=== PATIENT | female | born 1990 | race Caucasian/White ===

== ENCOUNTER 2017-12-22 21:22 | Emergency (ER) | payer OTHER ==
--- NOTE | 2017-12-22 21:34 | PDOC ---
Rapid Medical Evaluation Chief Complaint: Pain, Acute Time Seen by Provider: 12/22/17 21:28 Medical Evaluation: Allergies Allergy/AdvReac Type Severity Reaction Status Date / Time No Known Allergies Allergy Verified 09/20/15 18:50 12/22/17 21:32 27 year old female with left side neck and shoulder pain x3 days s/p skin biopsy to left shoulder on 12/12/2017. surgical site clean dry and intact. pain worse with movement. patient reports that she took naprosen at 3.45 with no relief in pain, denies chest pain, dizziness, nausea and vomiting PE: patient alert ox3. pain to left shoulder with movement. A: shoulder pain P: Ua urine patient to the ER for further management Discharge Disposition - Diagnosis Shoulder pain, left Qualifiers: Chronicity: acute Qualified Code(s): M25.512 - Pain in left shoulder - Referrals - Patient Instructions - Post Discharge Activity
[2017-12-22 21:39] VITALS: BP 157/82; PULSE 64; TEMP 97.7; BMI 26.6
[2017-12-22 22:07] LABS: HCG,QUALITATIVE URINE NEGATIVE
[2017-12-22] MEDS ORDERED: KETOROLAC TROMETHAMINE 60 MG/2 ML VIAL IM ONE (22:21)
[2017-12-22] MEDS ORDERED: KETOROLAC TROMETHAMINE 60 MG/2 ML VIAL ONE (22:22)
--- NOTE | 2017-12-22 22:29 | PDOC ---
History of Present Illness - General Chief Complaint: Pain, Acute Stated Complaint: NECK PAIN Time Seen by Provider: 12/22/17 21:28 - History of Present Illness Initial Comments: 7-year-old female without comorbidities presents for evaluation of left shoulder pain. She is 10 days status post left shoulder arthroscopy. Her pain increased over the last 4 days without any precipitating traumatic event. 12/22/17 22:23 Past History - Past Medical History Allergies/Adverse Reactions: Allergies Allergy/AdvReac Type Severity Reaction Status Date / Time No Known Allergies Allergy Verified 09/20/15 18:50 Home Medications: Ambulatory Orders NK [No Known Home Medication] 12/22/17 Anemia: No Asthma: No Cancer: No Cardiac Disorders: No CVA: No COPD: No CHF: No DVT: No Dementia: No Diabetes: No Dialysis: No GI Disorders: No Disorders: No HTN: No Hypercholesterolemia: No Kidney Stones: No Liver Disease: No Psychiatric Problems: No Seizures: No Thyroid Disease: No - Reproductive History (#): 3 Para: 0 Therapeutic (s) & number: Yes (2) Spontaneous : 2 - Immunization History Immunization Up to Date: Yes - Suicide/Smoking/Psychosocial Hx Smoking Status: Yes Smoking History: Never smoked Number of Cigarettes Smoked Daily: 0 Information on smoking cessation initiated: No Hx Alcohol Use: No Drug/Substance Use Hx: No Substance Use Type: None Review of Systems - Review of Systems Musculoskeletal: Yes: Joint Pain All Other Systems: Reviewed and Negative *Physical Exam - Vital Signs Last Vital Signs Temp Pulse Resp BP Pulse Ox 97.7 F 64 20 157/82 100 12/22/17 21:32 12/22/17 21:32 12/22/17 21:32 12/22/17 21:32 12/22/17 21:32 - Physical Exam Comments: Left shoulder arthroscopic portals are healing. Skin color and temperature are normal. There is no swelling no appreciable intra-articular effusion. Mild discomfort with passive motion. Upper extremity compartments are tender. She has no gross sensorimotor deficits. 12/22/17 22:24 12/22/17 22:25 ED Treatment Course - ADDITIONAL ORDERS Additional order review: Laboratory Results 12/22/17 21:37 Urine HCG, Qual Negative Medical Decision Making - Medical Decision Making This sounds like increased postoperative pain I do not suspect a septic joint. we'll get an ultrasound 12/22/17 22:24 07/30/18 22:25 *DC/Admit/Observation/Transfer Diagnosis at time of Disposition: Shoulder pain, left Qualifiers: Chronicity: acute Qualified Code(s): M25.512 - Pain in left shoulder - Referrals Referrals: Sy Neri MD [Primary Care Provider] - - Patient Instructions - Post Discharge Activity
[2017-12-22 22:30] LABS: URINE APPEARANCE SLCLOUDY; URINE BILIRUBIN NEGATIVE (<2.0 mg/dL); URINE COLOR LTYELLOW; URINE GLUCOSE (UA) NEGATIVE (NEGATIVE); URINE KETONE NEGATIVE (NEGATIVE); URINE LEUK ESTERASE TRACE (NEGATIVE); URINE NITRITE NEGATIVE (NEGATIVE); URINE PROTEIN NEGATIVE (NEGATIVE); URINE UROBILINOGEN NEGATIVE mg/dL (0.2-1.0)
[2017-12-22 22:39] LABS: EPI CELLS FEW /HPF (FEW); URINE BACTERIA RARE /hpf (NONE SEEN); URINE MUCUS RARE
--- NOTE | 2017-12-22 23:53 | PDOC ---
*Physical Exam - Vital Signs Last Vital Signs Temp Pulse Resp BP Pulse Ox 97.7 F 64 20 157/82 100 12/22/17 21:32 12/22/17 21:32 12/22/17 21:32 12/22/17 21:32 12/22/17 21:32 ED Treatment Course - ADDITIONAL ORDERS Additional order review: Laboratory Results 12/22/17 21:37 Urine Color Ltyellow Urine Appearance Slcloudy Urine pH 5.0 D Ur Specific [place] 1.018 Urine Protein Negative Urine Glucose (UA) Negative Urine Ketones Negative Urine Blood 1+ H Urine Nitrite Negative Urine Bilirubin Negative Urine Urobilinogen Negative Ur Leukocyte Esterase Trace Urine WBC (Auto) 4 Urine RBC (Auto) 4 Ur Epithelial Cells Few Urine Bacteria Rare Urine Mucus Rare Urine HCG, Qual Negative - Medications Given in the ED: ED Medications Discontinued Medications Generic Name Dose Route Start Last Admin Trade Name Freq PRN Reason Stop Dose Admin Ketorolac Tromethamine 60 mg 12/22/17 22:21 12/22/17 22:25 Toradol Injection - IM 12/22/17 22:22 60 mg ONCE ONE Administration Medical Decision Making - Medical Decision Making 12/22/17 23:48 US negative for DVT. will d/c home patient to follow up with orthopedics *DC/Admit/Observation/Transfer Diagnosis at time of Disposition: Shoulder pain, left Qualifiers: Chronicity: acute Qualified Code(s): M25.512 - Pain in left shoulder - Discharge Dispostion Disposition: HOME - Prescriptions Prescriptions: Oxycodone HCl/Acetaminophen [Percocet 5-325 mg Tablet] 1 tab PO Q4H PRN #10 tablet MDD 4 PRN Reason: Pain Level 6-10 - Referrals Referrals: Sy Neri MD [Primary Care Provider] - - Patient Instructions Printed Discharge Instructions: DI for Shoulder Pain Additional Instructions: take percocet every 4-6 hours as needed for pain. follow up with your surgeon as soon as possible. return to the ER if symptoms worsen - Post Discharge Activity Forms/Work/School Notes: Back to Work
== END 2017-12-23 00:43 | disposition home or self-care (01) ==
LOC: JERFT 21:22 → JER 21:22
PROC: 3E0233Z Introduction of Anti-inflammatory into Muscle, Percutaneous Approach (ICD-10-PCS; principal; 2017-12-22)
DX: M25.512 Pain in left shoulder (principal)
CPT/HCPCS: 81003; 81015; 84703; 93971; 96372; 99281-25

== ENCOUNTER 2018-07-01 19:35 | Inpatient (IN) | payer OTHER ==
--- NOTE | 2018-07-01 20:34 | PDOC ---
Rapid Medical Evaluation Chief Complaint: Pain Time Seen by Provider: 07/01/18 20:33 Medical Evaluation: Allergies Allergy/AdvReac Type Severity Reaction Status Date / Time No Known Allergies Allergy Verified 09/20/15 18:50 07/01/18 20:34 I have performed a brief in-person evaluation of this patient. The patient presents with a chief complaint of: Body aches w/ neck pain, ANGEL and fever since yesterday. Denies pmhx, recent travel or sick contacts. No AMS, photophobia or rash Pertinent physical exam findings:chino very uncomfortable and tachy to 106 w/ T of 99F I have ordered the following:motrin, flu The patient will proceed to the ED for further evaluation. Discharge Disposition - Diagnosis Viral syndrome - Referrals Referrals: Raza Burns MD [Primary Care Provider] - - Patient Instructions - Post Discharge Activity
[2018-07-01] MEDS ORDERED: IBUPROFEN 400 MG TABLET (FP) PO ONE ×3 (20:38→23:23)
--- NOTE | 2018-07-01 20:50 | PDOC ---
History of Present Illness - General Chief Complaint: Pain Stated Complaint: PAIN Time Seen by Provider: 07/01/18 20:33 - History of Present Illness Initial Comments: 07/01/18 21:16 27-year-old female presents for evaluation of headache neck pain and abdominal pain with fever times one day. She just finished a course of amoxicillin for strep throat infection while on that coarse she took Diflucan for a yeast infection, she also takes omeprazole for GERD Past History - Past Medical History Allergies/Adverse Reactions: Allergies Allergy/AdvReac Type Severity Reaction Status Date / Time No Known Allergies Allergy Verified 07/01/18 20:38 Home Medications: Ambulatory Orders NK [No Known Home Medication] 07/01/18 Anemia: No Asthma: No Cancer: No Cardiac Disorders: No CVA: No COPD: No CHF: No DVT: No Dementia: No Diabetes: No Dialysis: No GI Disorders: No Disorders: No HTN: No Hypercholesterolemia: No Kidney Stones: No Liver Disease: No Psychiatric Problems: No Seizures: No Thyroid Disease: No - Reproductive History (#): 3 Para: 0 Therapeutic (s) & number: Yes (2) Spontaneous : 2 - Immunization History Immunization Up to Date: Yes - Suicide/Smoking/Psychosocial Hx Smoking Status: Yes Smoking History: Never smoked Have you smoked in the past 12 months: No Number of Cigarettes Smoked Daily: 0 Information on smoking cessation initiated: No Hx Alcohol Use: No Drug/Substance Use Hx: No Substance Use Type: None Review of Systems - Review of Systems Constitutional: Yes: Fever ABD/GI: Yes: See HPI Musculoskeletal: Yes: Neck Pain Neurological: Yes: Headache *Physical Exam - Vital Signs Last Vital Signs Temp Pulse Resp BP Pulse Ox 99.2 F 106 H 18 151/91 100 07/01/18 20:33 07/01/18 20:33 07/01/18 20:33 07/01/18 20:33 07/01/18 20:33 - Physical Exam Comments: 07/01/18 21:17 HEAD: NC/AT EYES: Conjuntiva clear Ears: Canals and TM's normal NOSE: No d/c THROAT: Moist mucous membrances, oral pharanx clear, uvula midline NECK: + Meningismus CARDIAC: S1 S2 LUNGS: CTA Full and Equal breath sounds ABDOMEN: Soft right upper quadrant tenderness MS: Full ROM in all joints without edema NEUROLOGIC: No gross sensory or motor deficits, NVID SKIN: Normal color and temperature no lesions or rashes 07/01/18 21:31 Moderate Sedation - Procedure Monitoring Vital Signs: Procedure Monitoring Vital Signs Temperature 99.2 F 07/01/18 20:33 Pulse Rate 106 H 07/01/18 20:33 Respiratory Rate 18 07/01/18 20:33 Blood Pressure 151/91 07/01/18 20:33 O2 Sat by Pulse Oximetry (%) 100 07/01/18 20:33 ED Treatment Course - Medications Given in the ED: ED Medications Discontinued Medications Generic Name Dose Route Start Last Admin Trade Name Freq PRN Reason Stop Dose Admin Ibuprofen 800 mg 07/01/18 20:38 07/01/18 20:46 Motrin - PO 07/01/18 20:39 800 mg ONCE ONE Administration Medical Decision Making - Medical Decision Making 07/01/18 20:50 EKG done in triage, order placed as a courtesy 07/01/18 21:32 pt signed out to main ER *DC/Admit/Observation/Transfer Diagnosis at time of Disposition: Abdominal pain, Headache, Neck pain Diagnosis at time of Disposition: (Ruled Out): Viral syndrome - Referrals Referrals: Raza Burns MD [Staff Physician] - - Patient Instructions - Post Discharge Activity
[2018-07-01] MEDS ORDERED: ACETAMINOPHEN 1000 MG/100 ML VIAL (NON FORMULARY) IVPB ONE (21:15)
[2018-07-01 21:36] LABS: BASO % 0.5 % (0-2.0); EOS % 0.3 % (0-4.5); HEMATOCRIT 38.7 % (32.4-45.2); HEMOGLOBIN 13.6 GM/dL (10.7-15.3); LYMPH % 16.8 % (8-40); MCHC 35.1 g/dl (32.0-36.0); MEAN CELL VOLUME 82.5 fl (80-96); MEAN PLT VOLUME 8.9 fl (7.5-11.1); MONO % 10.3 % (3.8-10.2); NEUT % 72.1 % (42.8-82.8); PLATELET COUNT 241 K/MM3 (134-434); RBC 4.69 M/mm3 (3.60-5.2); RDW 13.5 % (11.6-15.6); WHITE BLOOD COUNT 9.8 K/mm3 (4.0-10.0)
--- NOTE | 2018-07-01 21:36 | PDOC ---
History of Present Illness - General Chief Complaint: Pain Stated Complaint: PAIN Time Seen by Provider: 07/01/18 20:33 History Source: Patient Exam Limitations: No Limitations - History of Present Illness Initial Comments: 07/01/18 21:35 The patient is a 27F with a PMH of GERD who presents to the ER with complaints of abdominal pain and headache. The patient states she's had 2 days of abdominal pain, in her epigastrium and suprapubic abdomen. The pain is sharp and intermittent, nonradiating, associated with nausea, vomiting, and chills. She denies dysuria and discharge. She denies any abdominal surgery. She also complains of a headache which is progressive but worsening, located on the L side of her head, associated with photophobia and neck stiffness. She denies sick contacts. She denies fever, chills, CP, SOB. Past History - Past Medical History Allergies/Adverse Reactions: Allergies Allergy/AdvReac Type Severity Reaction Status Date / Time No Known Allergies Allergy Verified 07/01/18 20:38 Home Medications: Ambulatory Orders NK [No Known Home Medication] 07/01/18 Anemia: No Asthma: No Cancer: No Cardiac Disorders: No CVA: No COPD: No CHF: No DVT: No Dementia: No Diabetes: No Dialysis: No GI Disorders: No Disorders: No HTN: No Hypercholesterolemia: No Kidney Stones: No Liver Disease: No Psychiatric Problems: No Seizures: No Thyroid Disease: No - Reproductive History (#): 3 Para: 0 Therapeutic (s) & number: Yes (2) Spontaneous : 2 - Immunization History Immunization Up to Date: Yes - Suicide/Smoking/Psychosocial Hx Smoking Status: Yes Smoking History: Never smoked Have you smoked in the past 12 months: No Number of Cigarettes Smoked Daily: 0 Information on smoking cessation initiated: No Hx Alcohol Use: No Drug/Substance Use Hx: No Substance Use Type: None Review of Systems - Review of Systems Able to Perform ROS?: Yes Comments:: 07/02/18 03:26 GENERAL/CONSTITUTIONAL: No fever or chills. No weakness. HEAD, EYES, EARS, NOSE AND THROAT: No change in vision. No ear pain or discharge. No sore throat. CARDIOVASCULAR: No chest pain, palpitations, or lightheadedness. RESPIRATORY: No cough, wheezing, shortness of breath, or hemoptysis. GASTROINTESTINAL: Positive for nausea, vomiting, and abdominal pain. GENITOURINARY: No dysuria, frequency, hematuria, or change in urination. MUSCULOSKELETAL: No joint or muscle swelling or pain. No neck or back pain. SKIN: No rash or lesions. NEUROLOGIC: Positive for headache. No numbness, tingling, focal weakness, loss of consciousness, or change in strength/sensation. Is the patient limited Indonesian proficient: No Constitutional: No: Chills, Fever *Physical Exam - Vital Signs Last Vital Signs Temp Pulse Resp BP Pulse Ox 99.2 F 106 H 18 151/91 100 07/01/18 20:33 07/01/18 20:33 07/01/18 20:33 07/01/18 20:33 07/01/18 20:33 - Physical Exam Comments: 07/02/18 03:27 GENERAL: Well developed, well nourished. Awake and alert. No acute distress. HEENT: Normocephalic, atraumatic. Hearing grossly normal. Moist mucous membranes. PERRLA, EOMI. No conjunctival pallor. Sclera are non-icteric. NECK: Supple. Full ROM. No JVD. CARDIOVASCULAR: Regular rate and rhythm. No murmurs, rubs, or gallops. PULMONARY: No evidence of respiratory distress. Lungs clear to auscultation bilaterally. No wheezing, rales or rhonchi. ABDOMINAL: Soft. TTP with guarding over epigastrium. TTP without rebound or guarding in suprapubic abdomen. Non-distended. GENITOURINARY: No CVA tenderness bilaterally. MUSCULOSKELETAL: Normal range of motion at all joints. No bony deformities or tenderness. EXTREMITIES: No cyanosis. No clubbing. No edema. No calf tenderness or swelling. SKIN: Warm and dry. Normal capillary refill. No rashes. No jaundice. NEUROLOGICAL: Alert, awake, appropriate. Cranial nerves 2-12 grossly intact. Normal speech. Gait is normal without ataxia. PSYCHIATRIC: Cooperative. Good eye contact. Appropriate mood and affect. Moderate Sedation - Procedure Monitoring Vital Signs: Procedure Monitoring Vital Signs Temperature 99.2 F 07/01/18 20:33 Pulse Rate 106 H 07/01/18 20:33 Respiratory Rate 18 07/01/18 20:33 Blood Pressure 151/91 07/01/18 20:33 O2 Sat by Pulse Oximetry (%) 100 07/01/18 20:33 Procedures - Lumbar Puncture Indication: Meningitis CT Scan: Yes Betadine Prep: No Position: Left lateral decubitus Site: L4-L51 Local Anesthesia: 1% Lidocaine with epi Volume(ml): 2 Lumbar Puncture Kit: Adult Traumatic Tap: Yes Tubes Obtained: 4 Clear Fluid: Yes Complications: Headache (same as prior to LP) ED Treatment Course - LABORATORY CBC & Chemistry Diagram: 07/01/18 21:15 07/01/18 21:15 - Medications Given in the ED: ED Medications Discontinued Medications Generic Name Dose Route Start Last Admin Trade Name Troyq PRN Reason Stop Dose Admin Ibuprofen 800 mg 07/01/18 20:38 07/01/18 20:46 Motrin - PO 07/01/18 20:39 800 mg ONCE ONE Administration Medical Decision Making - Medical Decision Making 07/02/18 01:08 The patient is a 27F with no PMH who presents to the ER with abdominal pain concerning for cholecystitis, pancreatitis, UTI, and appendicitis. Headache with neck stiffness concerning for meningitis. CT head negative. CTAP concerning for early appendicitis. Case d/w Dr. Lamar who will see the patient in the morning. 07/02/18 02:31 LP done in sterile fashion without complications. Tubes sent to lab for evaluation. 07/02/18 04:22 CSF negative for WBC. RBC's decreased from 5000 to 175, ruling out SAH. Dr. Al paged for admission. 07/02/18 04:57 Dr. Al paged x 2. 07/02/18 05:12 Hospitalist microblogged for admission. 07/02/18 05:[address] Shahid for admission. *DC/Admit/Observation/Transfer Diagnosis at time of Disposition: Neck pain Abdominal pain Qualifiers: Abdominal location: right lower quadrant Qualified Code(s): R10.31 - Right lower quadrant pain Headache Qualifiers: Headache type: unspecified Headache chronicity pattern: unspecified pattern Intractability: intractable Qualified Code(s): R51 - Headache - Discharge Dispostion Condition at time of disposition: Guarded Decision to Admit order: Yes - Referrals Referrals: Raza Burns MD [Staff Physician] - - Patient Instructions - Post Discharge Activity
[2018-07-01] MEDS ORDERED: ACETAMINOPHEN INJECTION 100 ML IVPB ONE (21:37)
[2018-07-01 21:43] LABS: URINE APPEARANCE CLEAR; URINE BILIRUBIN NEGATIVE (<2.0 mg/dL); URINE COLOR LTYELLOW; URINE GLUCOSE (UA) NEGATIVE (NEGATIVE); URINE KETONE TRACE (NEGATIVE); URINE LEUK ESTERASE NEGATIVE (NEGATIVE); URINE NITRITE NEGATIVE (NEGATIVE); URINE PROTEIN NEGATIVE (NEGATIVE); URINE UROBILINOGEN NEGATIVE mg/dL (0.2-1.0)
[2018-07-01 21:51] LABS: EPI CELLS RARE /HPF (FEW); URINE BACTERIA RARE /hpf (NONE SEEN)
[2018-07-01 22:04] LABS: ALBUMIN 3.9 g/dl (3.4-5.0); ALK PHOS 47 U/L (45-117); ANION GAP 5 MMOL/L (8-16); BILIRUBIN,TOTAL 0.6 mg/dL (0.2-1); BLOOD UREA NITROGEN 9 mg/dL (7-18); CALCIUM 8.9 mg/dL (8.5-10.1); CHLORIDE 104 mmol/L (98-107); CO2 28 mmol/L (21-32); CREATININE 0.7 mg/dL (0.55-1.3); GLUCOSE,RANDOM 82 mg/dL (74-106); LIPASE 186 U/L (73-393); POTASSIUM 3.8 mmol/L (3.5-5.1); SGOT/AST 14 U/L (15-37); SGPT/ALT 24 U/L (13-61); SODIUM 137 mmol/L (136-145); TOT PROT 7.3 g/dl (6.4-8.2)
[2018-07-01] MEDS ORDERED: SODIUM CHLORIDE 0.9% 1000 ML INFUS.BAG IV ONE (22:06)
--- NOTE | 2018-07-01 22:10 | PDOC ---
Attending Attestation - HPI HPI: 07/01/18 22:41 The patient is a 27 year old female, with a significant past medical history of GERD, who presents to the emergency department with, abdominal pain, headache, and neck pain. Patient notes her abdominal pain onset at 12am this morning and the headache/neck pain onset at 6am. She endorses decreased ROM of her neck secondary to pain, prompting her arrival to the ED. She denies recent chest pain or shortness of breath. Allergies: NKDA Primary Care Physician: Dr. Sy Neri - Physicial Exam PE: 07/01/18 22:58 Agree with resident exam. <Chelsey Dorantes - Last Filed: 07/01/18 22:58> - Resident Resident Name: Wing Lazo - ED Attending Attestation I have performed the following: I have examined & evaluated the patient, The case was reviewed & discussed with the resident, I agree w/resident's findings & plan - Medical Decision Making 07/02/18 05:08 27-year-old female with headache neck stiffness and abdominal pain CT scan of the abdomen showed possible early appendicitis Lumbar puncture was not suggestive of meningitis Unasyn 3 g IV piggyback given and patient admitted for further evaluation, surgery consult did by the emergency department resident <Kiley King - Last Filed: 07/02/18 05:09> Attestations - Attestations 07/01/18 22:42 Documentation prepared by Chelsey Dorantes, acting as medical doctor nuclear medicine for Kiley King DO. <Chelsey Dorantes - Last Filed: 07/01/18 22:58>
[2018-07-01] MEDS ORDERED: QUEtiapine FUMARATE 25 MG TABLET (FP) ONE (23:09)
[2018-07-01] MEDS ORDERED: METOCLOPRAMIDE HCL INJECTION 10 MG/2 ML VIAL IVPB ONE (23:17)
[2018-07-01] MEDS ORDERED: METOCLOPRAMIDE HCL INJECTION 10 MG/2 ML VIAL ONE (23:25)
[2018-07-02] MEDS ORDERED: LIDOCAINE HCL 1%, 10 MG/ML (20ML VIAL) ONE ×2 (02:15→09:06)
[2018-07-02] MEDS ORDERED: LIDOCAINE HCL 1%, 10 MG/ML (50 mL VIAL) SQ ONE (02:15)
[2018-07-02 03:53] LABS: BF GLUCOSE (CSF ONLY) 57 mg/dL (40-70)
[2018-07-02 04:08] LABS: CSF APPEARANCE CLEAR; CSF WBC 3
[2018-07-02 04:10] LABS: CSF APPEARANCE CLEAR; CSF COLOR COLORLESS; CSF WBC 0; OTHER CELLS 0
[2018-07-02 04:11] LABS: CSF COLOR PINK
[2018-07-02] MEDS ORDERED: AMPICILLIN NA/SULBACTAM NA 1.5 GM in SODIUM CHLORIDE 100 ML IVPB ONE (05:04)
[2018-07-02] MEDS ORDERED: LACTATED RINGERS SOLUTION 1,000 ML/1,000 ML INFUS.BAG IV SCH (06:00)
--- NOTE | 2018-07-02 06:13 | HP ---
<Maeve Shahid - Last Filed: 07/02/18 06:15> CHIEF COMPLAINT: abdominal pain/ headache PCP: HISTORY OF PRESENT ILLNESS: 27 y/o female with no PMH presents with a headache and abdominal pain. Patient states that the abdominal pain started yesterday afternoon and it was associated with a fever at home and an episode of vomiting, no diarrhea. She states that this has never happened before- she denies any recent travel or any dietary changes. She describes the pain as around an 8/10, throughout her whole abdomen. In addition, patient was also having a headache that was associated with neck pain and photophobia. She has had a headache like this in the past around 6 months ago but never saw a neurologist, and usually will take ibuprofen for the pain. ER course was notable for: (1) head CT negative; LP done- results negative for meningitis thus far (2)ab/pelvis CT showing early signs of appendicitis- dr. gleason consulted and aware (3)given unasyn; toradol/ibuprofen Recent Travel: denies PAST MEDICAL HISTORY: denies PAST SURGICAL HISTORY: 1 c section; shoulder surgery Social History: Smoking:denies Alcohol:denies Drugs: denies Family History: HTN on both sides of her family Allergies No Known Allergies Allergy (Verified 07/01/18 20:38) HOME MEDICATIONS: Home Medications Medication Instructions Recorded NK [No Known Home Medication] 07/01/18 REVIEW OF SYSTEMS CONSTITUTIONAL: Absent: fever, chills, diaphoresis, generalized weakness, malaise, loss of appetite, weight change HEENT: Absent: rhinorrhea, nasal congestion, throat pain, throat swelling, difficulty swallowing, mouth swelling, ear pain, eye pain, visual changes CARDIOVASCULAR: Absent: chest pain, syncope, palpitations, irregular heart rate, lightheadedness , peripheral edema RESPIRATORY: Absent: cough, shortness of breath, dyspnea with exertion, orthopnea, wheezing, stridor, hemoptysis GASTROINTESTINAL: Present: abdominal pain, vomiting Absent: , abdominal distension, nausea, , diarrhea, constipation, melena, hematochezia GENITOURINARY: Absent: dysuria, frequency, urgency, hesitancy, hematuria, flank pain, genital pain MUSCULOSKELETAL: Absent: myalgia, arthralgia, joint swelling, back pain, neck pain SKIN: Absent: rash, itching, pallor HEMATOLOGIC/IMMUNOLOGIC: Absent: easy bleeding, easy bruising, lymphadenopathy, frequent infections ENDOCRINE: Absent: unexplained weight gain, unexplained weight loss, heat intolerance, cold intolerance NEUROLOGIC: Present: headache Absent: focal weakness or paresthesias, dizziness, unsteady gait, seizure, mental status changes, bladder or bowel incontinence PSYCHIATRIC: Absent: anxiety, depression, suicidal or homicidal ideation, hallucinations. PHYSICAL EXAMINATION Vital Signs - 24 hr 07/01/18 20:33 Temperature 99.2 F Pulse Rate 106 H Respiratory 18 Rate Blood Pressure 151/91 O2 Sat by Pulse 100 Oximetry (%) GENERAL: Awake, alert, and fully oriented, in no acute distress.. EYES: Pupils equal, round and reactive to light, sensitive to light. NECK: NO JVD, no lymphadneopathy. LUNGS: CTA B/L; no rales, rhonchi or wheezing. HEART: Regular rate and rhythm, normal S1 and S2 without murmur, rub or gallop. ABDOMEN: Soft, RLQ tenderness upon palpation; + rovsings sign MUSCULOSKELETAL: Normal range of motion at all joints. No bony deformities or tenderness. No CVA tenderness. EXTREMITIES: warm; well-perfused no clubbing/cyanosis or edema NEUROLOGICAL: Cranial nerves II-XII intact. Normal speech. Normal gait. PSYCHIATRIC: Cooperative. Good eye contact. Appropriate mood and affect. SKIN: Warm, dry, normal turgor, no rashes or lesions noted, normal capillary refill. Laboratory Results - last 24 hr 07/01/18 07/01/18 07/01/18 20:42 21:15 21:15 WBC 9.8 RBC 4.69 Hgb 13.6 Hct 38.7 MCV 82.5 MCH 29.0 MCHC 35.1 RDW 13.5 Plt Count 241 D MPV 8.9 Absolute Neuts (auto) 7.0 Neutrophils % 72.1 Lymphocytes % 16.8 Monocytes % 10.3 H Eosinophils % 0.3 Basophils % 0.5 Nucleated RBC % 0 Sodium 137 Potassium 3.8 Chloride 104 Carbon Dioxide 28 Anion Gap 5 L BUN 9 Creatinine 0.7 Creat Clearance w eGFR > 60 Random Glucose 82 Calcium 8.9 Total Bilirubin 0.6 AST 14 L ALT 24 Alkaline Phosphatase 47 Total Protein 7.3 Albumin 3.9 Lipase 186 Urine Color Urine Appearance Urine pH Ur Specific [place] Urine Protein Urine Glucose (UA) Urine Ketones Urine Blood Urine Nitrite Urine Bilirubin Urine Urobilinogen Ur Leukocyte Esterase Urine WBC (Auto) Urine RBC (Auto) Ur Epithelial Cells Urine Bacteria Urine HCG, Qual CSF Appearance CSF Color CSF WBC CSF RBC CSF Neutrophils CSF Lymphocytes CSF Monocytes CSF Eosinophils CSF Basophils CSF Macrophages CSF Plasma Cells CSF Other Cells CSF Diff Comment CSF Glucose CSF Total Protein Influenza A (Rapid) Negative Influenza B (Rapid) Negative 07/01/18 07/01/18 07/02/18 21:15 21:15 02:27 WBC RBC Hgb Hct MCV MCH MCHC RDW Plt Count MPV Absolute Neuts (auto) Neutrophils % Lymphocytes % Monocytes % Eosinophils % Basophils % Nucleated RBC % Sodium Potassium Chloride Carbon Dioxide Anion Gap BUN Creatinine Creat Clearance w eGFR Random Glucose Calcium Total Bilirubin AST ALT Alkaline Phosphatase Total Protein Albumin Lipase Urine Color Ltyellow Urine Appearance Clear Urine pH 7.0 D Ur Specific [place] 1.012 Urine Protein Negative Urine Glucose (UA) Negative Urine Ketones Trace H Urine Blood 3+ H Urine Nitrite Negative Urine Bilirubin Negative Urine Urobilinogen Negative Ur Leukocyte Esterase Negative Urine WBC (Auto) 28 Urine RBC (Auto) 43 Ur Epithelial Cells Rare Urine Bacteria Rare Urine HCG, Qual Negative CSF Appearance Clear CSF Color [place] CSF WBC 3 CSF RBC 5250 CSF Neutrophils 0 CSF Lymphocytes 3 CSF Monocytes CSF Eosinophils 0 CSF Basophils 0 CSF Macrophages 0 CSF Plasma Cells 0 CSF Other Cells CSF Diff Comment CSF Glucose 57 CSF Total Protein 32 Influenza A (Rapid) Influenza B (Rapid) 07/02/18 02:27 WBC RBC Hgb Hct MCV MCH MCHC RDW Plt Count MPV Absolute Neuts (auto) Neutrophils % Lymphocytes % Monocytes % Eosinophils % Basophils % Nucleated RBC % Sodium Potassium Chloride Carbon Dioxide Anion Gap BUN Creatinine Creat Clearance w eGFR Random Glucose Calcium Total Bilirubin AST ALT Alkaline Phosphatase Total Protein Albumin Lipase Urine Color Urine Appearance Urine pH Ur Specific [place] Urine Protein Urine Glucose (UA) Urine Ketones Urine Blood Urine Nitrite Urine Bilirubin Urine Urobilinogen Ur Leukocyte Esterase Urine WBC (Auto) Urine RBC (Auto) Ur Epithelial Cells Urine Bacteria Urine HCG, Qual CSF Appearance Clear CSF Color Colorless CSF WBC 0 CSF RBC 175 CSF Neutrophils 0 CSF Lymphocytes 0 CSF Monocytes 0 CSF Eosinophils 0 CSF Basophils 0 CSF Macrophages 0 CSF Plasma Cells 0 CSF Other Cells 0 CSF Diff Comment CSF Glucose No Result Required. CSF Total Protein No Result Required. Influenza A (Rapid) Influenza B (Rapid) ASSESSMENT/PLAN: 27 y/o female with no PMH presents to the ED with a headache in addition to abdominal pain found to have early appendicitis #Appendicitis Dr Gleason consulted from the ED; will see patient this AM\ -started patient on levaquin/flagyl -PT/INR PTT sent -Type and screen -toradol for pain -NPO -LR @100mls/hr #Headache LP negative for meningitis -head CT negative for acute pathology -consider neuro consult F/E/N LR @100mls/hr monitor electrolytes NPO DVT PPX: scds Problem List - Problem (1) Abdominal pain Code(s): R10.9 - UNSPECIFIED ABDOMINAL PAIN Qualifiers: Abdominal location: right lower quadrant Qualified Code(s): R10.31 - Right lower quadrant pain (2) Headache Code(s): R51 - HEADACHE Qualifiers: Headache type: unspecified Headache chronicity pattern: unspecified pattern Intractability: intractable Qualified Code(s): R51 - Headache Visit type - Emergency Visit Emergency Visit: Yes ED Registration Date: 07/02/18 Care time: The patient presented to the Emergency Department on the above date and was hospitalized for further evaluation of their emergent condition. - New Patient This patient is new to me today: Yes Date on this admission: 07/02/18 - Critical Care Critical Care patient: No <Robin Perry - Last Filed: 07/04/18 20:25> Seen and examined; agree with above aside from what is supplemented in my own documentation. Was present and verified all mora parts of history and physical exam.
--- NOTE | 2018-07-02 06:20 | PN ---
Teaching Attending Note Name of Resident: Maeve Shahid ATTENDING PHYSICIAN STATEMENT I saw and evaluated the patient. I reviewed the resident's note and discussed the case with the resident. I agree with the resident's findings and plan as documented. SUBJECTIVE: Seen and examined; please refer to resident note for further historical information. Briefly, this is a 27 y/o female with no chronic medical conditions for which she is on Rx medications though she does get chronic headaches. She has a prior hx . She presents with a day of fevers/ malaise and abdominal pain that was complicated by headache. She is a patient of Dr. Al. Due to aforementioned presentation she came to the ER and had a LP which was negative for meningitis but she was found to have appendicitis on CT abdomen. She is hemodynamically stable and afebrile. ER contacted sgy who will see her. She will be brought to the floor on the medicine service with a surgical consultation. 10 sys ROS done and negative aside from HPI PMH, PSH, Social hx, Family hx reviewed OBJECTIVE: VS, labs, imaging reviewed NAD, AAO, resting in bed No meningeal signs, photophobia on exam post LP, CN2-12 wnl, no fnd RRR s1/2 no mgr +Rovsings sign, lower abdominal tenderness, +BS, nondistended, no guarding Lungs CTAB, w/ sym exp CN2-12 wnl, no fnd Normal mood, appropriate affect Labs show normal CBC, unremarkable chemistry. Blood in UA. Prelim CT report shows potential early appendicitis; followup final ASSESSMENT AND PLAN: Patient presents with fever, abdominal pain, and headache that is like her prior issues. She is found to have potential appendicitis and negative LP. 1) Acute Appendicitis -Based on imaging and clinical exam; sgy is aware and will see -NPO, IVF with LR@100, Levaquin and Metronidazole -Further management per surgical services. Pain control, etc. 2) Headache -Negative LP for meningitis; followup cx to be certain but very low clinical suspicion -Consider OP referral for neurology for headache management. FENA -LR @100 -PRN replete -NPO -As tolerated Full Code
[2018-07-02] MEDS ORDERED: ACETAMINOPHEN 325 MG TABLET (FP) PO PRN (07:05)
[2018-07-02] MEDS ORDERED: BUPIVACAINE HCL/PF 0.5% (5MG/ML) 10 ML VIAL ONE (09:07)
--- NOTE | 2018-07-02 09:19 | CONSULT ---
- Consultation REQUESTING PROVIDER: ER MD CONSULT REQUEST: We have been asked to surgically evaluate this patient for abdominal pain PCP:Kathy Al HISTORY OF PRESENT ILLNESS:CTSP for e/m of abdominal pain of ~ 30 hours duration which brought her to the ER; she denies /[employer] c/o's; she had associated n/v; pain started in the upper abdomen and is now localized to the RLQ w/radiation to the back. She states the pain is constant and crampy/sharp; she has no other GI c/o. PMHx: GERD PSHx: C-S Home Medications Medication Instructions Recorded NK [No Known Home Medication] 07/01/18 Allergies Allergy/AdvReac Type Severity Reaction Status Date / Time No Known Allergies Allergy Verified 07/01/18 20:38 PHYSICAL EXAM: GENERAL: Awake, alert, and fully oriented, in no acute distress. HEAD: Normal with no signs of trauma. EYES: sclera anicteric, conjunctiva clear. NECK: Normal ROM, supple without lymphadenopathy, JVD, or masses. ABDOMEN: Soft, tender RLQ to deep palpation, not distended, normoactive bowel sounds, minimal guarding, no rebound, no masses. No organomegaly. No hernias; Psoas and obturatoe and Rovsings signs are present. MUSCULOSKELETAL: Normal ROM at all joints. No bony deformities or tenderness. No CVA tenderness. UPPER EXTREMITIES: 2+ pulses, warm, well-perfused. No cyanosis. Cap refill <2 seconds. No peripheral edema. LOWER EXTREMITIES: 2+ pulses, warm, well-perfused. No calf tenderness. No peripheral edema. NEUROLOGICAL: Normal speech, gait not observed. PSYCH: Cooperative. Good eye contact. Appropriate mood and affect. SKIN: Warm, dry, normal turgor, no rashes or lesions noted. Vital Signs Temperature 98.3 F 07/02/18 08:00 Pulse Rate 80 07/02/18 08:00 Respiratory Rate 18 07/02/18 08:00 Blood Pressure 123/77 07/02/18 08:00 O2 Sat by Pulse Oximetry (%) 100 07/02/18 08:00 Lab Results WBC 9.8 K/mm3 (4.0-10.0) 07/01/18 21:15 RBC 4.69 M/mm3 (3.60-5.2) 07/01/18 21:15 Hgb 13.6 GM/dL (10.7-15.3) 07/01/18 21:15 Hct 38.7 % (32.4-45.2) 07/01/18 21:15 MCV 82.5 fl (80-96) 07/01/18 21:15 MCHC 35.1 g/dl (32.0-36.0) 07/01/18 21:15 RDW 13.5 % (11.6-15.6) 07/01/18 21:15 Plt Count 241 K/MM3 (134-434) D 07/01/18 21:15 Sodium 137 mmol/L (136-145) 07/01/18 21:15 Potassium 3.8 mmol/L (3.5-5.1) 07/01/18 21:15 Chloride 104 mmol/L (98-107) 07/01/18 21:15 Carbon Dioxide 28 mmol/L (21-32) 07/01/18 21:15 Anion Gap 5 MMOL/L (8-16) L 07/01/18 21:15 BUN 9 mg/dL (7-18) 07/01/18 21:15 Creatinine 0.7 mg/dL (0.55-1.3) 07/01/18 21:15 Random Glucose 82 mg/dL (74-106) 07/01/18 21:15 Calcium 8.9 mg/dL (8.5-10.1) 07/01/18 21:15 CT a/p-images and reports reviewed and c/w early retrocecal appendicitis. IMP: acyte appendicitis PLAN: lap appendectomy possible open; r/b/t/a's d/w the patient and her in [place] and informed consent obtained. Angel Lamar MD FACS
[2018-07-02] MEDS ORDERED: MIDAZOLAM HCL 2 MG/2 ML SINGLE DOSE VIAL ONE ×2 (09:22)
[2018-07-02] MEDS ORDERED: fentaNYL CITRATE 250 MCG/5 ML VIAL ONE (09:26)
[2018-07-02] MEDS ORDERED: PROPOFOL 20 ML ONE ×3 (09:29→09:46)
[2018-07-02] MEDS ORDERED: LIDOCAINE HCL/PF 2% SDV 5ML VIAL ONE (10:35)
[2018-07-02] MEDS ORDERED: KETOROLAC TROMETHAMINE 30 MG/1 ML VIAL ONE (10:35)
[2018-07-02] MEDS ORDERED: DEXAMETHASONE SOD PHOSPHATE 4 MG/1 ML VIAL ONE (10:35)
[2018-07-02] MEDS ORDERED: GLYCOPYRROLATE 0.2 MG/1 ML VIAL ONE (10:35)
[2018-07-02] MEDS ORDERED: NEOSTIGMINE METHYLSULFATE 0.5 MG/ML - 10 ML MDV ONE (10:36)
[2018-07-02] MEDS ORDERED: BUPIVACAINE HCL/PF (5 MG/ML) 30 ML VIAL IJ ONE ×2 (10:42)
--- NOTE | 2018-07-02 11:11 | SURG ---
Surgery Engine Boss Note Engine Boss: Maxwell Wright PA-C Date of Service: 07/02/18 Diagnosis: acute appendicitis Procedure: laproscopic appendectomy I was present for the entirety of the operative procedure. For further detail, please refer to operative report.
[2018-07-02] MEDS: LACTATED RINGERS SOLUTION 1,000 ML/1,000 ML INFUS.BAG IV SCH ×2 (12:45→16:23)
--- NOTE | 2018-07-02 16:46 | EKG ---
Test Reason : Blood Pressure : / mmHG Vent. Rate : 110 BPM Atrial Rate : 110 BPM P-R Int : 130 ms QRS Dur : 080 ms QT Int : 300 ms P-R-T Axes : 061 074 003 degrees QTc Int : 406 ms SINUS TACHYCARDIA NONSPECIFIC T WAVE ABNORMALITY ABNORMAL ECG NO PREVIOUS ECGS AVAILABLE Confirmed by GEOVANY LOPEZ, JUHI ([id number]) on 07/02/2018 4:45:52 PM Referred By: Confirmed By:JUHI ARMENTA MD
[2018-07-02] MEDS ORDERED: oxyCODONE HCL 5 MG TABLET ONE (17:01)
[2018-07-02] MEDS: oxyCODONE HCL 5 MG TABLET PO PRN (17:07)
[2018-07-02] MEDS ORDERED: ONDANSETRON 4 MG/2 ML VIAL ONE (17:15)
[2018-07-02] MEDS: ONDANSETRON 4 MG/2 ML VIAL IVPUSH PRN (17:50)
[2018-07-02 19:01] VITALS: BMI 27.1
[2018-07-02] MEDS: LACTATED RINGERS SOLUTION 1,000 ML IV SCH (19:03)
[2018-07-02] MEDS: ACETAMINOPHEN 325 MG TABLET (FP) PO PRN (21:20)
--- NOTE | 2018-07-02 22:52 | CONSULT ---
Consult - text type - Consultation Consultation Note: NEUROLOGY CONSULTATION is greatly appreciated: This 27 yo RH woman with a 6 yo son is admitted with low grade fever and abdominal pain. Now s/p Laproscopic appendectomy. Ms. Serrano has had episodic headaches for many years. Over the last 3 months these have increased in frequency and severity and are now present approx 3 x per week. Can be present in the AM upon awakening or awaken her from sleep. These begin as sudden left occipital and neck pain and develop into throbbing left hemicranial headaches with nausea, photophobia and kinesiophobia. Now 3 days of "constant" ANGEL associated with her temps. Neck pain radiates to the left shoulder and arm, especially at night "when she sleeps on it." Labs sig for: 28 urinary WBC's. CSF sig for 0 WBC, protein= 32 mg%; Glucose=57 mg% TAMERA: Pt resists neck ROM. + cervical palp tenderness NEURO: MS/speech: Normal CN II-XII: normal Motor: No drift or tremor. Normal strength, tone and bulk. Normal reflexes. Toes downgoing. Coord: No FTN dystaxia Sensory: Normal Gait: Deferred. IMP: Normal Neurological Exam Migraine headaches r/o cervical radiculopathy (altho migraine is the likely cause of the "neck pain" as well.) Suggest: MRI of brain and cervical spine (both C-). Begin topiramate 25 mg BID x 1 week then 50 mg BID. Sumatriptan 100 mg PO PRN headache Please repeat UA and C&S and Rx for UTI if indicated. Out patient neuro F/U for EMG/NCS of arms and headache management. Thank you very much, Charles Stewart MD
[2018-07-03] MEDS: oxyCODONE HCL 5 MG TABLET PO PRN ×3 (02:15→12:15)
[2018-07-03] MEDS: SUMAtriptan SUCCINATE 50 MG TABLET PO PRN ×2 (02:18→15:19)
[2018-07-03] MEDS: LACTATED RINGERS SOLUTION 1,000 ML IV SCH ×2 (06:59→11:30)
[2018-07-03] MEDS: ACETAMINOPHEN 325 MG TABLET (FP) PO PRN (07:01)
[2018-07-03 07:34] LABS: BASO % 0.4 % (0-2.0); EOS % 1.8 % (0-4.5); HEMOGLOBIN 12.5 GM/dL (10.7-15.3); LYMPH % 29.9 % (8-40); MCH 28.3 pg (25.7-33.7); MCHC 34.6 g/dl (32.0-36.0); MEAN CELL VOLUME 81.7 fl (80-96); MEAN PLT VOLUME 8.8 fl (7.5-11.1); MONO % 10.5 % (3.8-10.2); NEUT % 57.4 % (42.8-82.8); PLATELET COUNT 217 K/MM3 (134-434); RBC 4.41 M/mm3 (3.60-5.2); RDW 13.6 % (11.6-15.6); WHITE BLOOD COUNT 6.8 K/mm3 (4.0-10.0)
[2018-07-03 08:05] LABS: ALK PHOS 39 U/L (45-117); ANION GAP 6 MMOL/L (8-16); BILIRUBIN,TOTAL 0.5 mg/dL (0.2-1); BLOOD UREA NITROGEN 7 mg/dL (7-18); CALCIUM 8.5 mg/dL (8.5-10.1); CHLORIDE 107 mmol/L (98-107); CO2 27 mmol/L (21-32); CREATININE 0.7 mg/dL (0.55-1.3); GLUCOSE,RANDOM 85 mg/dL (74-106); SGOT/AST 9 U/L (15-37); SGPT/ALT 19 U/L (13-61); SODIUM 140 mmol/L (136-145)
--- NOTE | 2018-07-03 08:29 | PN ---
Progress Note (short form) - Note Progress Note: POD#1 Pt with complaints of continued neck/shoulder pain with left sided headache. Tolerated clears. Slight abd pain. Vital Signs Period Temp Pulse Resp BP Sys/Mccartney Pulse Ox Last 24 Hr 97.5 F-100.5 F 69-104 12-18 102-130/58-85 95-100 GEN: A&0x3 ABD: soft, non-distended, inc c/d/i. Inc tenderness. CBC, BMP /08/ 06:20 02/08/19 06:20 A/P: s/p lap appy, POD#1 Advance diet to regular OOB ambulate as tolerated Toradol IV as needed for pain No surgical issues, no need for further IV abx. Pain medications as needed Pt getting MRI brain/neck for cervcial radiculopathy D/w Dr. Lamar
[2018-07-03] MEDS: KETOROLAC TROMETHAMINE 30 MG/1 ML VIAL IVPUSH PRN ×2 (08:31→17:52)
--- NOTE | 2018-07-03 08:43 | PN ---
Physical Exam: SUBJECTIVE: Patient seen and examined. She complains of pain in the back of her head, down her neck, into both shoulders and down her left arm. She also reports a little abdominal pain. She is tolerating clear liquids. OBJECTIVE: Vital Signs Period Temp Pulse Resp BP Sys/Mccartney Pulse Ox Last 24 Hr 97.5 F-100.5 F 69-104 12-18 102-130/58-85 95-100 GENERAL: The patient is awake, alert, and fully oriented, in moderate distress from neck pain. LUNGS: Breath sounds equal, clear to auscultation bilaterally, no wheezes, no crackles, no accessory muscle use. HEART: Regular rate and rhythm, S1, S2 without murmur, rub or gallop. ABDOMEN: Soft, (+) RLQ tenderness, nondistended, normoactive bowel sounds, no guarding, no rebound, no hepatosplenomegaly, no masses. EXTREMITIES: 2+ pulses, warm, well-perfused, no edema. NEUROLOGICAL: Normal speech. Strength 5/5 in all extremities. Sensation intact. DTRs 2+. Laboratory Results - last 24 hr 07/03/18 07/03/18 06:20 06:20 WBC 6.8 RBC 4.41 Hgb 12.5 Hct 36.0 MCV 81.7 MCH 28.3 MCHC 34.6 RDW 13.6 Plt Count 217 MPV 8.8 Absolute Neuts (auto) 3.9 Neutrophils % 57.4 D Lymphocytes % 29.9 D Monocytes % 10.5 H Eosinophils % 1.8 D Basophils % 0.4 Nucleated RBC % 0 Sodium 140 Potassium 4.0 Chloride 107 Carbon Dioxide 27 Anion Gap 6 L BUN 7 Creatinine 0.7 Creat Clearance w eGFR > 60 Random Glucose 85 Calcium 8.5 Total Bilirubin 0.5 AST 9 L ALT 19 Alkaline Phosphatase 39 L Total Protein 6.0 L Albumin 3.0 L Active Medications Generic Name Dose Route Start Last Admin Trade Name Freq PRN Reason Stop Dose Admin Acetaminophen 650 mg 07/02/18 11:09 07/03/18 07:01 Tylenol - PO 650 mg Q6H PRN Administration PAIN LEVEL 1-5 Lactated Ringer's 1,000 mls @ 125 mls/hr 07/02/18 11:30 07/03/18 06:59 Lactated Ringers Solution IV 125 mls/hr ASDIR SHERYL Administration Lactated Ringer's 1,000 ml in 1,000 mls @ 100 mls/hr 07/02/18 11:31 07/02/18 12:45 Lactated Ringers Solution IV 100 mls ASDIR SHERYL Administration Ketorolac Tromethamine 30 mg 07/03/18 08:02 Toradol Injection - IVPUSH 07/08/18 09:59 Q8H-IV PRN PAIN LEVEL 4 - 6 Ondansetron HCl 4 mg 07/02/18 11:21 07/02/18 17:50 Zofran Injection IVPUSH 4 mg Q6H PRN Administration NAUSEA AND/OR VOMITING Ondansetron HCl 4 mg 07/02/18 17:21 Zofran Injection IVPUSH Q6H PRN NAUSEA AND/OR VOMITING Oxycodone HCl 5 mg 07/02/18 11:08 07/03/18 06:18 Roxicodone - PO 5 mg Q4H PRN Administration PAIN LEVEL 4 - 6 Sumatriptan Succinate 50 mg 07/02/18 23:07 07/03/18 02:18 Imitrex - PO 50 mg BID PRN Administration HEADACHE Topiramate 25 mg 07/03/18 10:00 Topamax - PO BID SHERYL ASSESSMENT/PLAN: This is a 27 year old woman with no medical history who presented to the ED with headache and abdominal pain. 1. Acute appendicitis - s/p laparoscopic appendectomy 07/02 - Advance diet - Pain control 2. Migraine headache - Topamax, Imitrex as needed started - MRI of brain ordered 3. Neck and left arm pain - MRI of C-spine ordered Visit type - Emergency Visit Emergency Visit: Yes ED Registration Date: 07/02/18 Care time: The patient presented to the Emergency Department on the above date and was hospitalized for further evaluation of their emergent condition. - New Patient This patient is new to me today: Yes Date on this admission: 07/03/18 - Critical Care Critical Care patient: No - Discharge Referral Referred to [facility] Med P.C.: No
[2018-07-03] MEDS: TOPIRAMATE 25 MG TABLET (FP) PO SCH ×2 (09:35→21:25)
[2018-07-03] MEDS: ONDANSETRON 4 MG/2 ML VIAL IVPUSH PRN ×2 (09:48→09:49)
[2018-07-03] MEDS: LACTATED RINGERS SOLUTION 1,000 ML/1,000 ML INFUS.BAG IV SCH (11:30)
[2018-07-03] MEDS ORDERED: PT OWN MED DRAWER 7, Y5N ONE (15:19)
--- NOTE | 2018-07-03 20:02 | PN ---
Progress Note (short form) - Note Progress Note: NEUROLOGY PROGRESS: Events and MRI reviewed and discussed with Patient and at the bedside. Headache improved today after "meds." Neck pains also better. MRI of brain and C-spine (both reviewed) are normal. TAMERA: Neck supple NEURO: Pt in NAD Normal neurological exam IMP: Migraine headaches. SUGGEST: Continue topiramate 25 BID. Increase to 50 BID upon discharge Continue Sumatriptan 50-100 mg PRN ANGEL Eval and Rx for UTI if indicated Neuro F/U as out patient. Thank you very much, Charles Stewart MD
--- NOTE | 2018-07-03 21:25 | OP ---
Operative Note - Note: Operative Date: 07/02/18 Pre-Operative Diagnosis: acute appendicitis Operation: lap apendectomy Findings: acute appendicitis Post-Operative Diagnosis: Same as Pre-op Surgeon: Angel Lamar Optical Technician: Tracie Hernández Anesthesiologist/POCKET MACHINE OPERATOR: Adelita Danielle MD Anesthesia: General Specimens Removed: appendix Estimated Blood Loss (mls): 10
[2018-07-04] MEDS: oxyCODONE HCL 5 MG TABLET PO PRN ×4 (00:17→16:18)
[2018-07-04] MEDS: KETOROLAC TROMETHAMINE 30 MG/1 ML VIAL IVPUSH PRN ×3 (01:41→21:26)
--- NOTE | 2018-07-04 08:25 | OP ---
DATE OF OPERATION: 07/02/2018 PREOPERATIVE DIAGNOSIS: Acute appendicitis. POSTOPERATIVE DIAGNOSIS: Acute appendicitis. PROCEDURE: Laparoscopic appendectomy. SURGEON: Angel Lamar MD CATTLE TESTER: KARL Mckeon and KARL Hu ANESTHESIA: General. OPERATIVE FINDINGS: Acute appendicitis. The rest of the findings were unremarkable. DESCRIPTION OF PROCEDURE: The patient was placed on the operating room in supine position. After the induction of general anesthesia, the patient's abdomen was prepped with ChloraPrep and draped in sterile fashion. A time-out was taken and pneumoperitoneum established above the umbilicus using a Veress needle to an intra-abdominal pressure of 15 mmHg. A suprapubic 12-mm port was placed as well a left lower quadrant 5-mm port, and the previously noted findings were observed. The appendix was noted to be retrocecal in its position. The patient was placed in the head down position with the table turned to the left and the appendix identified at the confluence of the 3 taenia of the right colon converging on the cecum at the base of the appendix. The appendix was grasped and then the mesosalpinx serially divided using the LigaSure device. Once cleared to the base, an Endo SHELL 3.5 purple load stapler was fired across the base of the appendix and the appendix placed in an EndoCatch and brought out through the suprapubic port. Pneumoperitoneum was re-established, and hemostasis was verified in the right lower quadrant. At this point, all ports were removed under laparoscopic vision without evidence of bleeding from the port sites and the pneumoperitoneum evacuated. All port sites infiltrated with 0.5% Marcaine, and the defect at the suprapubic port site was closed with a single 0 Vicryl [id number] suture. The skin incisions were closed with 4-0 Monocryl in a subcuticular continuous fashion, and Steri-Strips and Band-Aid dressings were placed. The procedure was terminated at this point and the patient aroused from general anesthesia and transferred to the post anesthesia care unit in stable condition awake and alert. ESTIMATED BLOOD LOSS: 15 mL. REPLACEMENTS: Crystalloid. DRAINS: None. SPECIMEN: Appendix to pathology. I, Angel Lamar, was physically present in the operating room from the time the patient was placed on the operating room table until she was transferred to the post anesthesia care unit in [place]. MD ANAMARIA Maddox/[id number] MTDD
[2018-07-04] MEDS: ONDANSETRON 4 MG/2 ML VIAL IVPUSH PRN ×2 (09:13→18:15)
[2018-07-04] MEDS: TOPIRAMATE 25 MG TABLET (FP) PO SCH ×2 (09:13→21:26)
[2018-07-04] MEDS: LACTATED RINGERS SOLUTION 1,000 ML IV SCH (12:17)
[2018-07-04] MEDS: LACTATED RINGERS SOLUTION 1,000 ML/1,000 ML INFUS.BAG IV SCH (12:18)
--- NOTE | 2018-07-04 12:49 | PN ---
Physical Exam: SUBJECTIVE: Patient seen and examined at the bedside. Tells me that she is still having headaches, neck pain and shoulder pain. Wants another opinion on her headaches. OBJECTIVE: patient asking for 2nd opinion states her headaches are not improving Vital Signs Period Temp Pulse Resp BP Sys/Mccartney Pulse Ox Last 24 Hr 98.2 F-98.9 F 66-76 18-18 112-141/73-88 98-100 GENERAL: The patient is awake, alert, and fully oriented, in no acute distress. HEAD: Normal with no signs of trauma. EYES: PERRL, extraocular movements intact, sclera anicteric, conjunctiva clear. No ptosis. ENT: Ears normal, nares patent, oropharynx clear without exudates, moist mucous membranes. NECK: Trachea midline, full range of motion, supple. LUNGS: Breath sounds equal, clear to auscultation bilaterally, no wheezes, no crackles, no accessory muscle use. HEART: Regular rate and rhythm, ABDOMEN: s/p appendicitis, wounds clear/dry/intact. tolerating diet. EXTREMITIES: 2+ pulses, warm, well-perfused, no edema. NEUROLOGICAL: headaches, shoulder pain, neck pain PSYCH: Normal mood, normal affect. SKIN: Warm, dry, normal turgor, no rashes or lesions noted Active Medications Generic Name Dose Route Start Last Admin Trade Name Freq PRN Reason Stop Dose Admin Acetaminophen 650 mg 07/02/18 11:09 07/03/18 07:01 Tylenol - PO 650 mg Q6H PRN Administration PAIN LEVEL 1-5 Lactated Ringer's 1,000 mls @ 125 mls/hr 07/02/18 11:30 07/04/18 12:17 Lactated Ringers Solution IV Not Given ASDIR SHERYL Lactated Ringer's 1,000 ml in 1,000 mls @ 100 mls/hr 07/02/18 11:31 07/04/18 12:18 Lactated Ringers Solution IV Not Given ASDIR SHERYL Ketorolac Tromethamine 30 mg 07/03/18 08:02 07/04/18 12:18 Toradol Injection - IVPUSH 07/08/18 09:59 30 mg Q8H-IV PRN Administration PAIN LEVEL 4 - 6 Ondansetron HCl 4 mg 07/02/18 17:21 07/03/18 09:49 Zofran Injection IVPUSH 4 mg Q6H PRN Administration NAUSEA AND/OR VOMITING Oxycodone HCl 5 mg 07/02/18 11:08 07/04/18 09:13 Roxicodone - PO 5 mg Q4H PRN Administration PAIN LEVEL 4 - 6 Sumatriptan Succinate 50 mg 07/02/18 23:07 07/03/18 15:19 Imitrex - PO 50 mg BID PRN Administration HEADACHE Topiramate 25 mg 07/03/18 10:00 07/04/18 09:13 Topamax - PO 25 mg BID SHERYL Administration ASSESSMENT/PLAN: Patient is a 27 year old female with a significant past medical history of migranes. She comes to the ED with abdominal pain and is s/p appendectomy on 07/04/18. Patient reports having a headache that was associated with neck pain and photophobia. She has had a headache like this in the past around 6 months ago but never saw a neurologist, and usually will take ibuprofen for the pain. Imaging: head CT negative LP done- results negative for meningitis GI: Acute appendicitis, s/p laparoscopic appendectomy 07/02/18 Tolerating diet, denies nausea/vomiting No abdominal pain Dressing intact Bennett currently controlled Neuro Migrane headache, unresolved On Topamax, Imitrex, tylenol, toradol Had normal LP on 07/02/[address] spine negative Seen by neurology, but patient states her headaches are worse and asking for 2nd opinion fen tolerating diet monitor electrolytes low salt diet prophy full code Visit type - Emergency Visit Emergency Visit: Yes ED Registration Date: 07/02/18 Care time: The patient presented to the Emergency Department on the above date and was hospitalized for further evaluation of their emergent condition. - New Patient This patient is new to me today: Yes Date on this admission: 07/04/18 - Critical Care Critical Care patient: No - Discharge Referral Referred to [facility] Med P.C.: No
[2018-07-04 14:32] LABS: URINE APPEARANCE SLCLOUDY; URINE BILIRUBIN NEGATIVE (<2.0 mg/dL); URINE COLOR LTYELLOW; URINE GLUCOSE (UA) NEGATIVE (NEGATIVE); URINE KETONE NEGATIVE (NEGATIVE); URINE LEUK ESTERASE NEGATIVE (NEGATIVE); URINE NITRITE NEGATIVE (NEGATIVE); URINE PROTEIN NEGATIVE (NEGATIVE); URINE UROBILINOGEN NEGATIVE mg/dL (0.2-1.0)
[2018-07-04 14:37] LABS: EPI CELLS RARE /HPF (FEW); URINE BACTERIA RARE /hpf (NONE SEEN); URINE MUCUS RARE
[2018-07-04] MEDS ORDERED: PT OWN MED DRAWER 7, Y5N ONE (16:13)
[2018-07-04] MEDS: SUMAtriptan SUCCINATE 50 MG TABLET PO PRN (16:18)
[2018-07-04] MEDS: ACETAMINOPHEN 325 MG TABLET (FP) PO PRN (18:15)
[2018-07-05] MEDS: oxyCODONE HCL 5 MG TABLET PO PRN ×2 (02:22→16:47)
[2018-07-05] MEDS ORDERED: PT OWN MED DRAWER 7, Y5N ONE ×2 (05:56→08:31)
[2018-07-05] MEDS: SUMAtriptan SUCCINATE 50 MG TABLET PO PRN ×2 (05:57→08:31)
[2018-07-05] MEDS: ACETAMINOPHEN 325 MG TABLET (FP) PO PRN (08:31)
[2018-07-05] MEDS: TOPIRAMATE 25 MG TABLET (FP) PO SCH (09:06)
[2018-07-05] MEDS: ONDANSETRON 4 MG/2 ML VIAL IVPUSH PRN (09:13)
--- NOTE | 2018-07-05 10:24 | CONSULT ---
Consult - text type - Consultation Consultation Note: cc Severe headhace HPI 27 year old female history of severe headhace, patient do get headhace for a long time. For past six months her headhace has been more frquent and more severe. She would get phtopobia, neck pain and nausea, she describes her pain has going into her eye and severe throbbing occipital pain. Her csf, mri of brain and ct head were normal. She continue to have pain. She is in pain now and as per patient her pain has not improved. Patient is getting more pain when she gets up and she is not able to stand up due to severe headahce. PAST MEDICAL HISTORY: denies any significant medical problem PAST SURGICAL HISTORY: 1 c section; shoulder surgery Social History: denies any toxic habtis and lives iwth her Family History: HTN on both sides of her family Allergies No Known Allergies Allergy (Verified 07/01/18 20:38) HOME MEDICATIONS: Home Medications Medication Instructions Recorded NK [No Known Home Medication] 07/01/18 ROS, FH reviwed in chart NEUROLOGICAL EXAMINATION Paitent seems to be uncomfortable doing coversation due to pain and there is neck muscle spasm oriented x 3, speech is normal CN 2-12 intact, eomi , pupils reactive motor 5/5 all ext sensation is normal reflex are is grade 2 ct head, csf, mri of brain and and neck were unremarkable Assessment/Plan 1. I suspect she has mixed headhace of migraine and tension headhace, given her wbc were 0 and rbc were 175, I suggest to do cta of brain to rule of aneursy, her neck muslce spasm seems to be muscular in origin. I would switch to nortripytine and d/c topamax. Life style modifications, preventative mediation and acute medication usage was discussed with patient . 2. Postural headhace, worsening of headache on standing, ? post spinal tap headhace. She is advice to drink plenty of water, take bed rest and drink soda, and anesthesiology consult for blood patch. Thanking you so much Aric Mariscal MD
[2018-07-05] MEDS: KETOROLAC TROMETHAMINE 30 MG/1 ML VIAL IVPUSH PRN (12:52)
--- NOTE | 2018-07-05 15:36 | PN ---
Physical Exam: SUBJECTIVE: Patient seen and examined at the bedside. seen by neurology. patient still having headaches. OBJECTIVE: Vital Signs Period Temp Pulse Resp BP Sys/Mccartney Pulse Ox Last 24 Hr 97.9 F-98.3 F 58-86 20-20 118-129/70-78 98-98 GENERAL: The patient is awake, alert, and fully oriented, in no acute distress. HEAD: Normal with no signs of trauma. EYES: PERRL, extraocular movements intact, sclera anicteric, conjunctiva clear. No ptosis. ENT: Ears normal, nares patent, oropharynx clear without exudates, moist mucous membranes. NECK: Trachea midline, full range of motion, supple. LUNGS: Breath sounds equal, clear to auscultation bilaterally, no wheezes, no crackles, no accessory muscle use. HEART: Regular rate and rhythm, ABDOMEN: s/p appendicitis, wounds clear/dry/intact. tolerating diet. EXTREMITIES: 2+ pulses, warm, well-perfused, no edema. NEUROLOGICAL: headaches, shoulder pain, neck pain PSYCH: Normal mood, normal affect. SKIN: Warm, dry, normal turgor, no rashes or lesions noted Active Medications Generic Name Dose Route Start Last Admin Trade Name Freq PRN Reason Stop Dose Admin Acetaminophen 650 mg 07/02/18 11:09 07/05/18 08:31 Tylenol - PO 650 mg Q6H PRN Administration PAIN LEVEL 1-5 Lactated Ringer's 1,000 mls @ 125 mls/hr 07/02/18 11:30 07/04/18 12:17 Lactated Ringers Solution IV Not Given ASDIR SHERYL Lactated Ringer's 1,000 ml in 1,000 mls @ 100 mls/hr 07/02/18 11:31 07/04/18 12:18 Lactated Ringers Solution IV Not Given ASDIR SHERYL Ketorolac Tromethamine 30 mg 07/03/18 08:02 07/05/18 12:52 Toradol Injection - IVPUSH 07/08/18 09:59 30 mg Q8H-IV PRN Administration PAIN LEVEL 4 - 6 Nortriptyline HCl 25 mg 07/05/18 22:00 Pamelor - PO HS SHERYL Ondansetron HCl 4 mg 07/02/18 17:21 07/05/18 09:13 Zofran Injection IVPUSH 4 mg Q6H PRN Administration NAUSEA AND/OR VOMITING Oxycodone HCl 10 mg 07/05/18 13:55 Roxicodone - PO Q6H PRN PAIN LEVEL 7 - 10 Sumatriptan Succinate 50 mg 07/02/18 23:07 07/05/18 08:31 Imitrex - PO 50 mg BID PRN Administration HEADACHE ASSESSMENT/PLAN: Patient is a 27 year old female with a significant past medical history of migranes. She comes to the ED with abdominal pain and is s/p appendectomy on 07/04/18. Patient reports having a headache that was associated with neck pain and photophobia. She has had a headache like this in the past around 6 months ago but never saw a neurologist, and usually will take ibuprofen for the pain. Imaging: head CT negative LP done- results negative for meningitis GI: Acute appendicitis, s/p laparoscopic appendectomy 07/02/18 Tolerating diet, denies nausea/vomiting No abdominal pain Dressing intact Bennett currently controlled Neuro Migrane headache, unresolved On Topamax, Imitrex, tylenol, toradol Had normal LP on 07/02/[address] spine negative Seen by neurology, and seen again today for a 2nd neurological opinion. scheduled for CTA of brain. Medications changed from topamax to Nortriptyline. Life style modification as recommended by neuro discussed with patient. Anesthesia consult for blood patch. fen tolerating diet monitor electrolytes low salt diet prophy full code Visit type - Emergency Visit Emergency Visit: Yes ED Registration Date: 07/02/18 Care time: The patient presented to the Emergency Department on the above date and was hospitalized for further evaluation of their emergent condition. - New Patient This patient is new to me today: No - Critical Care Critical Care patient: No - Discharge Referral Referred to [facility] Med P.C.: No
[2018-07-05] MEDS: LACTATED RINGERS SOLUTION 1,000 ML IV SCH (16:43)
[2018-07-05] MEDS: LACTATED RINGERS SOLUTION 1,000 ML/1,000 ML INFUS.BAG IV SCH (21:17)
[2018-07-05] MEDS: NORTRIPTYLINE HCL 25 MG CAPSULE PO SCH (21:20)
[2018-07-06] MEDS: oxyCODONE HCL 5 MG TABLET PO PRN ×2 (00:32→09:36)
[2018-07-06 08:12] LABS: BASO % 0.7 % (0-2.0); EOS % 3.4 % (0-4.5); HEMATOCRIT 42.3 % (32.4-45.2); HEMOGLOBIN 14.5 GM/dL (10.7-15.3); LYMPH % 32.7 % (8-40); MCH 28.2 pg (25.7-33.7); MCHC 34.2 g/dl (32.0-36.0); MEAN CELL VOLUME 82.5 fl (80-96); MEAN PLT VOLUME 8.1 fl (7.5-11.1); MONO % 6.1 % (3.8-10.2); NEUT % 57.1 % (42.8-82.8); PLATELET COUNT 309 K/MM3 (134-434); RBC 5.13 M/mm3 (3.60-5.2); RDW 13.6 % (11.6-15.6); WHITE BLOOD COUNT 8.6 K/mm3 (4.0-10.0)
[2018-07-06] MEDS: LACTATED RINGERS SOLUTION 1,000 ML/1,000 ML INFUS.BAG IV SCH ×2 (08:18→18:38)
[2018-07-06 09:12] LABS: ALBUMIN 3.4 g/dl (3.4-5.0); ALK PHOS 44 U/L (45-117); ANION GAP 6 MMOL/L (8-16); BILIRUBIN,TOTAL 0.4 mg/dL (0.2-1); BLOOD UREA NITROGEN 10 mg/dL (7-18); CALCIUM 8.9 mg/dL (8.5-10.1); CHLORIDE 106 mmol/L (98-107); CO2 25 mmol/L (21-32); CREATININE 0.9 mg/dL (0.55-1.3); GLUCOSE,RANDOM 94 mg/dL (74-106); MAGNESIUM 2.2 mg/dL (1.8-2.4); POTASSIUM 4.8 mmol/L (3.5-5.1); SGOT/AST 9 U/L (15-37); SGPT/ALT 25 U/L (13-61); SODIUM 138 mmol/L (136-145); TOT PROT 6.7 g/dl (6.4-8.2)
--- NOTE | 2018-07-06 09:40 | PN ---
Progress Note (short form) - Note Progress Note: 27 year old female history of severe headhace, patient do get headhace for a long time. For past six months her headhace has been more frquent and more severe. She would get phtopobia, neck pain and nausea, she describes her pain has going into her eye and severe throbbing occipital pain. Her csf, mri of brain and ct head were normal. She continue to have pain. She is in pain now and as per patient her pain has not improved. Patient is getting more pain when she gets up and she is not able to stand up due to severe headahce. Her headhace is better in occpital region but still have frontal headhace. Spoke to anesthesiologist, she refused Blood patch. She is waiting to get blood patch. NEUROLOGICAL EXAMINATION Paitent seems to be uncomfortable doing coversation due to pain and there is neck muscle spasm oriented x 3, speech is normal CN 2-12 intact, eomi , pupils reactive motor 5/5 all ext sensation is normal reflex are is grade 2 ct head, csf, mri of brain and and neck were unremarkable Assessment/Plan 1. I suspect she has mixed headhace of migraine and tension headhace, given her wbc were 0 and rbc were 175, cts is pending. 2. Continue Nortripytline 2. Postural headhace, worsening of headache on standing, ? post spinal tap headhace. She is advice to drink plenty of water, take bed rest and drink soda/ She refused blood patch. Thanking you so much Aric Mariscal MD
[2018-07-06] MEDS: ONDANSETRON 4 MG/2 ML VIAL IVPUSH PRN (13:29)
[2018-07-06] MEDS: KETOROLAC TROMETHAMINE 30 MG/1 ML VIAL IVPUSH PRN (17:46)
--- NOTE | 2018-07-06 18:30 | PN ---
Physical Exam: SUBJECTIVE: Patient seen, still having neck pain and headaches. she is most uncomfortable with position changes. OBJECTIVE: for blood patch tomorrow with anesthesia. will make npo @ midnight Vital Signs Period Temp Pulse Resp BP Sys/Mccartney Pulse Ox Last 24 Hr 97.8 F-98.9 F 69-92 20-20 117-133/74-92 98 GENERAL: The patient is awake, alert, and fully oriented, in no acute distress. HEAD: Normal with no signs of trauma. EYES: PERRL, extraocular movements intact, sclera anicteric, conjunctiva clear. No ptosis. ENT: Ears normal, nares patent, oropharynx clear without exudates, moist mucous membranes. NECK: Trachea midline, full range of motion, supple. LUNGS: Breath sounds equal, clear to auscultation bilaterally, no wheezes, no crackles, no accessory muscle use. HEART: Regular rate and rhythm, ABDOMEN: s/p appendicitis, wounds clear/dry/intact. tolerating diet. EXTREMITIES: 2+ pulses, warm, well-perfused, no edema. NEUROLOGICAL: headaches, shoulder pain, neck pain PSYCH: Normal mood, normal affect. SKIN: Warm, dry, normal turgor, no rashes or lesions noted Laboratory Results - last 24 hr 07/06/18 07/06/18 07:45 07:45 WBC 8.6 RBC 5.13 Hgb 14.5 Hct 42.3 D MCV 82.5 MCH 28.2 MCHC 34.2 RDW 13.6 Plt Count 309 D MPV 8.1 Absolute Neuts (auto) 4.9 Neutrophils % 57.1 Lymphocytes % 32.7 Monocytes % 6.1 Eosinophils % 3.4 D Basophils % 0.7 Nucleated RBC % 0 Sodium 138 Potassium 4.8 Chloride 106 Carbon Dioxide 25 Anion Gap 6 L BUN 10 Creatinine 0.9 Creat Clearance w eGFR > 60 Random Glucose 94 Calcium 8.9 Magnesium 2.2 Total Bilirubin 0.4 AST 9 L ALT 25 Alkaline Phosphatase 44 L Total Protein 6.7 Albumin 3.4 Active Medications Generic Name Dose Route Start Last Admin Trade Name Freq PRN Reason Stop Dose Admin Acetaminophen 650 mg 07/02/18 11:09 07/05/18 08:31 Tylenol - PO 650 mg Q6H PRN Administration PAIN LEVEL 1-5 Lactated Ringer's 1,000 ml in 1,000 mls @ 100 mls/hr 07/02/18 11:31 07/06/18 08:18 Lactated Ringers Solution IV Not Given ASDIR SHERYL Ketorolac Tromethamine 30 mg 07/03/18 08:02 07/06/18 17:46 Toradol Injection - IVPUSH 07/08/18 09:59 30 mg Q8H-IV PRN Administration PAIN LEVEL 4 - 6 Nortriptyline HCl 25 mg 07/05/18 22:00 07/05/18 21:20 Pamelor - PO 25 mg HS SHERYL Administration Ondansetron HCl 4 mg 07/02/18 17:21 07/06/18 13:29 Zofran Injection IVPUSH 4 mg Q6H PRN Administration NAUSEA AND/OR VOMITING Oxycodone HCl 10 mg 07/05/18 13:55 07/06/18 09:36 Roxicodone - PO 10 mg Q6H PRN Administration PAIN LEVEL 7 - 10 Sumatriptan Succinate 50 mg 07/02/18 23:07 07/05/18 08:31 Imitrex - PO 50 mg BID PRN Administration HEADACHE ASSESSMENT/PLAN: Patient is a 27 year old female with a significant past medical history of migranes. She comes to the ED with abdominal pain and is s/p appendectomy on 07/04/18. Patient reports having a headache that was associated with neck pain and photophobia. She has had a headache like this in the past around 6 months ago but never saw a neurologist, and usually will take ibuprofen for the pain. Imaging: head CT negative LP done- results negative for meningitis GI: Acute appendicitis, s/p laparoscopic appendectomy 07/02/18 Tolerating diet, denies nausea/vomiting No abdominal pain Dressing intact Pain currently controlled Neuro Migraine headache, unresolved On Nortriptyline, Imitrex, tylenol, toradol Had normal LP on 07/02/2018. now having headaches that are unresolved. Discussed with anesthesia for possible blood patch. Will likely happen tomorrow. Will keep NPO at midnight. Patient in agreement to have blood patch. Brain CTA negative. Neurology following fen tolerating diet monitor electrolytes low salt diet prophy full code Visit type - Emergency Visit Emergency Visit: Yes ED Registration Date: 07/02/18 Care time: The patient presented to the Emergency Department on the above date and was hospitalized for further evaluation of their emergent condition. - New Patient This patient is new to me today: No - Critical Care Critical Care patient: No - Discharge Referral Referred to [facility] Med P.C.: No
[2018-07-06] MEDS: NORTRIPTYLINE HCL 25 MG CAPSULE PO SCH (21:14)
[2018-07-07 10:18] LABS: BASO % 0.7 % (0-2.0); EOS % 4.2 % (0-4.5); HEMATOCRIT 39.2 % (32.4-45.2); HEMOGLOBIN 13.4 GM/dL (10.7-15.3); LYMPH % 31.1 % (8-40); MCH 27.8 pg (25.7-33.7); MCHC 34.1 g/dl (32.0-36.0); MEAN CELL VOLUME 81.6 fl (80-96); MEAN PLT VOLUME 8.1 fl (7.5-11.1); MONO % 6.8 % (3.8-10.2); NEUT % 57.2 % (42.8-82.8); PLATELET COUNT 322 K/MM3 (134-434); RDW 13.6 % (11.6-15.6); WHITE BLOOD COUNT 8.4 K/mm3 (4.0-10.0)
[2018-07-07 10:56] LABS: ALBUMIN 3.5 g/dl (3.4-5.0); ALK PHOS 46 U/L (45-117); ANION GAP 4 MMOL/L (8-16); BILIRUBIN,TOTAL 0.3 mg/dL (0.2-1); BLOOD UREA NITROGEN 13 mg/dL (7-18); CALCIUM 8.9 mg/dL (8.5-10.1); CHLORIDE 107 mmol/L (98-107); CO2 27 mmol/L (21-32); CREATININE 0.9 mg/dL (0.55-1.3); GLUCOSE,RANDOM 81 mg/dL (74-106); POTASSIUM 4.3 mmol/L (3.5-5.1); SGOT/AST 7 U/L (15-37); SGPT/ALT 25 U/L (13-61); SODIUM 139 mmol/L (136-145); TOT PROT 6.7 g/dl (6.4-8.2)
--- NOTE | 2018-07-07 11:01 | PN ---
Progress Note (short form) - Note Progress Note: 27 year old female history of severe headhace, patient do get headhace for a long time. For past six months her headhace has been more frquent and more severe. She would get phtopobia, neck pain and nausea, she describes her pain has going into her eye and severe throbbing occipital pain. Her csf, mri of brain and ct head were normal. She continue to have pain. She is in pain now and as per patient her pain has not improved. Patient is getting more pain when she gets up and she is not able to stand up due to severe headahce. Her headhace is slightly bettwer, she had cta and it was unremarkable. Caront is waiting for blood patch . NEUROLOGICAL EXAMINATION Victorino seems to be uncomfortable doing coversation due to pain and there is neck muscle spasm oriented x 3, speech is normal CN 2-12 intact, eomi , pupils reactive motor 5/5 all ext sensation is normal reflex are is grade 2 ct head, csf, mri of brain and and neck were unremarkable CTA is normal Assessment/Plan 1. I suspect she has mixed headhace of migraine and tension headhace, given her wbc were 0 and rbc were 175, CTA is normal. 2. Postural headhace ,waiting for patch , and advice to continue nortripytline and take nsaid prn . COntinue to have bed rest and drink plenty of soda and caffeine. Thanking you so much Aric Mariscal MD
[2018-07-07 12:02] LABS: INR 1.13 (0.83-1.09); PROTHROMBIN TIME (PATIENT) 13.3 SEC (9.7-13.0)
[2018-07-07 12:04] LABS: ACTIVATED PTT 28.7 SECONDS (25.2-36.5)
[2018-07-07] MEDS ORDERED: PT OWN MED DRAWER 7, Y5N ONE (13:23)
[2018-07-07] MEDS: SUMAtriptan SUCCINATE 50 MG TABLET PO PRN (13:27)
[2018-07-07] MEDS ORDERED: ACETAMINOPHEN/CAFFEINE/BUTALBITAL 1 TAB PO PRN (14:35)
--- NOTE | 2018-07-07 15:09 | PATH ---
Surgical Pathology Report Patient Name: MAHIN ANDRADE Med. Rec. #: [id number] /Age/Gender: 1990 (Age: 27) / F Account: [id number] Location: [facility] MED/SURG Taken: 07/02/2018 Received: 07/02/2018 Reported: 07/07/2018 Physicians: Angel Lamar MD Specimen(s) Received APPENDIX Clinical History Appendicitis Final Diagnosis APPENDIX, LAPAROSCOPIC APPENDECTOMY: FOCAL ACUTE MILD APPENDICITIS. Electronically Signed Geno Yañez M.D. Gross Description Received in formalin, labeled "appendix," is a 4.6 cm. in length vermiform appendix with a stapled margin of resection and moderate attached fat. The serosa is matthew-gaspar and smooth. Sectioning reveals an unremarkable lumen. The wall of the appendix averages 0.1 cm. in thickness. Entire specimen submitted in 3 cassettes. /07/03/2018 saudi07/03/2018
[2018-07-07 16:43] VITALS: BP 123/69; PULSE 82; TEMP 98.5
--- NOTE | 2018-07-07 17:24 | DS ---
Physical Examination Vital Signs: Vital Signs Temperature 98.5 F 07/07/18 16:42 Pulse Rate 82 07/07/18 16:42 Respiratory Rate 20 07/07/18 16:42 Blood Pressure 123/69 07/07/18 16:42 O2 Sat by Pulse Oximetry (%) 100 07/07/18 09:00 Constitutional: Yes: Well Nourished, Calm, Mild Distress Eyes: Yes: Conjunctiva Clear, PERRL HENT: Yes: Atraumatic, Normocephalic Neck: Yes: Supple, Trachea Midline Cardiovascular: Yes: Regular Rate and Rhythm Respiratory: Yes: Regular, CTA Bilaterally Gastrointestinal: Yes: Normal Bowel Sounds, Soft Musculoskeletal: Yes: WNL Extremities: Yes: WNL Edema: No Peripheral Pulses WNL: Yes Peripheral Pulses: Left Radial: 2+, Right Radial: 2+, Left Doralis Pedis: 2+, Right Dorsalis Pedis: 2+ Integumentary: Yes: WNL Wound/Incision: Yes: Clean/Dry, Well Approximated, Dressing Dry and Intact Neurological: Yes: Alert, Oriented ...Motor Strength: WNL Psychiatric: Yes: Alert, Oriented Labs: CBC, BMP 07/07/18 09:40 07/07/18 09:40 Discharge Summary Reason For Visit: APPENDICITIS ABDOMINAL PAIN Current Active Problems Abdominal pain (Acute) Headache (Acute) Neck pain (Acute) Procedures: Principal: Head CT 07/01/2018. Impression. No evidence of acute intracranial hemorrhage, edema, midline shift, mass effect, or skull fracture. There is no CT evidence of acute territorial infarction. Abd and Pelvis CT 07/02. Impression: There is motion reducing resolution in the mid abdomen, including the area of the appendix. The appendix is retrocecal and extends superiorly. It measures at least 6 mm on the prior study measured 5 mm. There are prominent nodes. I can't rule out mild periappendiceal stranding but it is difficult because of the motion to accurately evaluate. Close clinical correlation is suggested. Enhancing indeterminate hepatic mass for which ultrasound or MRI is suggested. Other findings as above. Study was initially read by René. . MRI brain 07/03/2018. Impression: Normal noncontrast MRI of the brain. No restrictive changes seen on diffusion-weighted images. No evidence of demyelinating process. No evidence of tonsillar ectopia. Reported By: Gennaro Degn MD. 07/03/18 1222. MRI C-spine 07/03/2018. Impression: No evidence of disc herniation, spinal stenosis, bone marrow edema. Normal signal intensity of the spinal cord. Straightening of the cervical spine with reversal cervical curvature Reported By: Gennaro Deng MD. CTA 07/06/2018. IMPRESSION: Negative exam. No definite CT abnormality is identified. 07/03/18 1311 Hospital Course: The patient is a 27 year old female, with a significant past medical history of GERD, who presents to the emergency department with, abdominal pain, headache, and neck pain. PAtient is on Rx medications though she does get chronic headaches. She has a prior hx . She presents with a day of fevers/ malaise and abdominal pain which eventually localized to RLQ. Due to aforementioned presentation she came to the ER and had a LP which was negative for meningitis but she was found to have appendicitis on CT abdomen. She is hemodynamically stable and afebrile. Pt admitted to inpatient unit with surgical consultation. Patient was made NPO, given IVF and started on flagyl and levaquin. Pt is now s/p Laproscopic appendectomy. NEURO: Over the last 3 months these have increased in frequency and severity and are now present approx 3 x per week. Can be present in the AM upon awakening or awaken her from sleep. MRI of brain and cervical spine (both neg). PT started on toradol and imitrex, however due to refractory headache, fioricet was added to her regimen. Patient instructed to follow up with outpt neuro for EMG/NCS of arms and headache management. Condition: Guarded - Instructions Diet, Activity, Other Instructions: Dr. Lamar Discharge Instructions Dear MAHIN ANDRADE, Post Operative Instructions Physical activity Resume your normal everyday activity as tolerated no heavy lifting or exercise until seen by your surgeon. You may walk unlimited amounts of and climb stairs. You may resume driving the car when you feel safe and comfortable behind the wheel. Wound care If you have a bandage, leave it on, and keep dry for 48 - 72 hours. After that time discard the outer bandage. If there are tapes on the skin under the outer bandage, leave them in place. They will peel off in the next 7 to 10 days. Do Not peel them off. You may shower 2 days after surgery. If there are tapes present on the skin, they can get wet. Diet There are no dietary restrictions. Eat healthy, high-fiber foods. Drink 6 to 8 glasses of liquid each day. This will assist in keeping your bowels are regular. Pain management You may take Tylenol or acetaminophen or Ibuprofen (for example, Motrin, Advil etc.) Any pain prescription medication ordered should be taken as prescribed for moderate to severe pain. Call Dr. Lamar for any of the following: Severe pain not relieved by medication Fever of 101 or higher Excessive bleeding or drainage on dressing Inability to urinate Call the office at [phone] for a post operative appointment in 7 - 10 days. Referrals: Raza Burns MD [Staff Physician] - Disposition: HOME - Home Medications Comprehensive Discharge Medication List: Ambulatory Orders Acetaminophen/Caffeine/Butalb [Fioricet -] 1 tablet PO Q6H PRN #90 tablet MDD 4 07/07/18 Nortriptyline HCl [Pamelor -] 25 mg PO HS 30 Days #30 capsule MDD 1 tab This patient is new to me today: Yes Date on this admission: 07/07/18 Emergency Visit: Yes ED Registration Date: 07/02/18 Care time: The patient presented to the Emergency Department on the above date and was hospitalized for further evaluation of their emergent condition. Critical Care patient: No - Discharge Referral Referred to [facility] Med P.C.: No
== END 2018-07-07 18:52 | disposition home or self-care (01) | DRG 225 ==
LOC: JERFT 19:35 → JERBED 07-02 01:38 → J8W 07-02 18:11
PROVIDERS: ADMIT Internal Medicine; ATTEND Nurse Practitioner Family
PROC: 0DTJ4ZZ Resection of Appendix, Percutaneous Endoscopic Approach (ICD-10-PCS; principal; 2018-07-02 09:00)
DX: K35.80 Unspecified acute appendicitis (principal); K21.9 Gastro-esophageal reflux disease without esophagitis; G43.909 Migraine, unspecified, not intractable, without status migrainosus; M54.2 Cervicalgia; R10.31 Right lower quadrant pain
CPT/HCPCS: 36415; 70450-TC; 70496-TC; 70551-TC; 72141-TC; 74177-TC; 80053; 81003; 81015; 82945; 83690; 83735; 84157; 84703; 85025; 85610; 85730; 87070; 87086; 87205; 87804; 88304-TC; 93005; 93010; 94760; 99284-25; J0131; J7030

== ENCOUNTER 2018-07-12 18:54 | Emergency (ER) | payer OTHER ==
[2018-07-12 19:09] VITALS: BP 135/82; PULSE 116; TEMP 98.7; BMI 23.3
--- NOTE | 2018-07-12 19:55 | PDOC ---
Attending Attestation - Resident Resident Name: Leslie Drake - ED Attending Attestation I have performed the following: I have examined & evaluated the patient, The case was reviewed & discussed with the resident, I agree w/resident's findings & plan - Medical Decision Making 07/12/18 22:20 WBC normal 07/12/18 22:52 Patient Name: MAHIN ANDRADE THIS IS A PRELIMINARY REPORT FROM IMAGING DIRECTOR DESIGN DATE OF SERVICE: 2018-07-12 21:57:34 IMAGES: 22 EXAM: SOFT TISSUE ABDOMEN US HISTORY: Follow-up of a wound in the umbilical region. History of appendectomy COMPARISON: None. FINDINGS: There is a small hypoechoic subcutaneous collection in the reported area of an open wound in the umbilical region measuring 2.0 x 0.4 x 0.9 cm Small abscess is a consideration 07/12/18 22:53 Labs normal; afebrile 07/12/18 23:[address] Lamar. He will see the patient on Friday in the office. Pt has minimal discomfort in the area. She has no fever and no WBC count, and she has a small fluid collection beneath the area of the umbilical wound. Dr. Lamar is aware. He will see her on 07/12/18 23:12 Pt will be steri-stripped by me. <Mer Hoffman - Last Filed: 07/12/18 23:18> - HPI HPI: 07/12/18 22:20 The patient is a 27 year old female, with a significant past medical history of migraines, who presents to the emergency department with, serosanguinous from her incision site. Patient recently had laparoscopic appendectomy done 07/02 and notes her scar opened slightly. She notes serosanguinous discharge to her wound , prompting her arrival to the ED. She denies recent fevers, chills, headache or dizziness. She denies recent nausea, vomit, diarrhea or constipation. She denies recent dysuria, frequency, urgency or hematuria. She denies recent chest pain or shortness of breath. Allergies: NKDA Past surgical history: laparoscopic appendectomy Primary Care Physician: Dr. Sy Neri - Physicial Exam PE: 07/12/18 23:22 GENERAL: Awake, alert, and fully oriented, in no acute distress HEAD: No signs of trauma EYES: PERRLA, EOMI, sclera anicteric, conjunctiva clear ENT: Auricles normal inspection, hearing grossly normal, nares patent, oropharynx clear without exudates. Moist mucosa NECK: Normal ROM, supple, no lymphadenopathy, JVD, or masses LUNGS: Breath sounds equal, clear to auscultation bilaterally. No wheezes, and no crackles HEART: Regular rate and rhythm, normal S1 and S2, no murmurs, rubs or gallops +ABDOMEN: 1-1.5cm horizontal wound to the umbilicus. Soft, nontender, normoactive bowel sounds. No guarding, no rebound. No masses EXTREMITIES: Normal range of motion, no edema. No clubbing or cyanosis. No cords, erythema, or tenderness NEUROLOGICAL: Cranial nerves II through XII grossly intact. Normal speech. <Chelsey Dorantes - Last Filed: 07/12/18 23:22> Attestations - Attestations 07/12/18 22:21 Documentation prepared by Chelsey Dorantes, acting as medical typist for Mer Hoffman MD. <Chelsey Dorantes - Last Filed: 07/12/18 23:22>
--- NOTE | 2018-07-12 20:20 | PDOC ---
History of Present Illness - General History Source: Patient Exam Limitations: Language Barrier - History of Present Illness Initial Comments: 07/12/18 20:15 27 yr old woman with migraines presents with open laproscopic wound periumbilically since dc on 07/07/2018. She underwent lap-appendectomy for acute appendicitis on 07/02/2018 and says since the day after surgery the periumbilical incision site has been open with serosanginous discharge and it remained open at home, it appeared to be larger on Friday with more serosanginous drainage. she has mostly been resting at home with minimal exertion due to migraines. she has been changing her dressing herself without difficulty. LLQ and suprapubic incision are healing well. denies abdominal pain, fever, chills, vomiting, poor appetite, diarrhea. funeral home location manager service utilized #[id number] <Leslie Drake - Last Filed: 07/12/18 23:14> <Mer Hoffman - Last Filed: 07/12/18 23:21> - General Chief Complaint: Wound Stated Complaint: WOUND Time Seen by Provider: 07/12/18 19:50 Past History - Travel Traveled outside of the country in the last 30 days: No Close contact w/someone who was outside of country & ill: No - Past Medical History Anemia: No Asthma: No Cancer: No Cardiac Disorders: No CVA: No COPD: No CHF: No DVT: No Dementia: No Diabetes: No Dialysis: No GI Disorders: No Disorders: No HTN: No Hypercholesterolemia: No Kidney Stones: No Liver Disease: No Psychiatric Problems: No Seizures: No Thyroid Disease: No - Surgical History Appendectomy: Yes (07/02/18) - Reproductive History (#): 3 Para: 0 Therapeutic (s) & number: Yes (2) Spontaneous : 2 - Immunization History Immunization Up to Date: Yes - Suicide/Smoking/Psychosocial Hx Smoking Status: Yes Smoking History: Never smoked Have you smoked in the past 12 months: No Number of Cigarettes Smoked Daily: 0 Hx Alcohol Use: No Drug/Substance Use Hx: No Substance Use Type: None <Leslie Drake - Last Filed: 07/12/18 23:14> <Mer Hoffman - Last Filed: 07/12/18 23:21> - Past Medical History Allergies/Adverse Reactions: Allergies Allergy/AdvReac Type Severity Reaction Status Date / Time No Known Allergies Allergy Verified 07/12/18 19:09 Home Medications: Ambulatory Orders Acetaminophen/Caffeine/Butalb [Fioricet -] 1 tablet PO Q6H PRN #90 tablet MDD 4 07/07/18 Nortriptyline HCl [Pamelor -] 25 mg PO HS 30 Days #30 capsule MDD 1 tab Review of Systems - Review of Systems Constitutional: No: Fever, Loss of Appetite, Malaise, Night Sweats, Weakness, Unintentional Wgt. Loss HEENTM: No: Double Vision, Nose Congestion, Difficulty Swallowing Respiratory: No: Cough ABD/GI: Yes: Constipated. No: Difficulty Swallowing, Nausea, Rectal Bleeding, Vomiting, Abdominal cramping : No: Flank Pain, Hematuria Musculoskeletal: No: Muscle Weakness, Joint Stiffness Integumentary: No: Bruising, Erythema, Pruritus Neurological: Yes: Headache. No: Paresthesia Endocrine: No: Flushing Hematologic/Lymphatic: No: Anemia <Vidal,Brigittea - Last Filed: 07/12/18 23:14> *Physical Exam - Vital Signs Last Vital Signs Temp Pulse Resp BP Pulse Ox 98.7 F 116 H 20 135/82 100 07/12/18 19:08 07/12/18 19:08 07/12/18 19:08 07/12/18 19:08 07/12/18 19:08 - Physical Exam General Appearance: Yes: Appropriately Dressed HEENT: positive: EOMI, DAMION. negative: Pharyngeal Erythema, Rhinorrhea, Sinus Tenderness, Thrush Neck: positive: Trachea midline, Normal Thyroid, Supple. negative: Lymphadenopathy (R), Lymphadenopathy (L), Thyromegaly Respiratory/Chest: positive: Lungs Clear, Normal Breath Sounds. negative: Crackles, Rhonchi, Stridor, Wheezing Cardiovascular: positive: Regular Rhythm, Regular Rate, S1, S2. negative: Murmur Gastrointestinal/Abdominal: positive: Normal Bowel Sounds, Flat. negative: Tender, Distended, Guarding, Rebound, Tenderness Musculoskeletal: negative: CVA Tenderness Extremity: negative: Calf Tenderness Integumentary: positive: Other (7zer5xp periumbilical incision with 1cm internal pocket superiorly. no surrounding erythema, fluctuance, tenderness or discharge expelled. LLQ incision covered with steristrips without discharge/ erythema. suprapubic incision well-healing. ) Neurologic: positive: Fully Oriented, Alert <Leslie Drake - Last Filed: 07/12/18 23:14> - Vital Signs Last Vital Signs Temp Pulse Resp BP Pulse Ox 98.7 F 116 H 20 135/82 100 07/12/18 19:08 07/12/18 19:08 07/12/18 19:08 07/12/18 19:08 07/12/18 19:08 <Mer Hoffman - Last Filed: 07/12/18 23:21> Moderate Sedation - Procedure Monitoring Vital Signs: Procedure Monitoring Vital Signs Temperature 98.7 F 07/12/18 19:08 Pulse Rate 116 H 07/12/18 19:08 Respiratory Rate 20 07/12/18 19:08 Blood Pressure 135/82 07/12/18 19:08 O2 Sat by Pulse Oximetry (%) 100 07/12/18 19:08 <Leslie Draek - Last Filed: 07/12/18 23:14> - Procedure Monitoring Vital Signs: Procedure Monitoring Vital Signs Temperature 98.7 F 07/12/18 19:08 Pulse Rate 116 H 07/12/18 19:08 Respiratory Rate 20 07/12/18 19:08 Blood Pressure 135/82 07/12/18 19:08 O2 Sat by Pulse Oximetry (%) 100 07/12/18 19:08 <Mer Hoffman - Last Filed: 07/12/18 23:21> ED Treatment Course - LABORATORY CBC & Chemistry Diagram: 07/12/18 21:43 07/12/18 21:43 <Leslie Drake - Last Filed: 07/12/18 23:14> - LABORATORY CBC & Chemistry Diagram: 07/12/18 21:43 07/12/18 21:43 - ADDITIONAL ORDERS Additional order review: Laboratory Results 07/12/18 07/12/18 21:43 21:43 PT with INR 12.80 INR 1.08 Sodium 139 Potassium 4.7 Chloride 103 Carbon Dioxide 30 Anion Gap 6 L BUN 12 Creatinine 0.7 Creat Clearance w eGFR > 60 Random Glucose 82 Calcium 9.4 Total Bilirubin 0.1 L AST 16 ALT 32 Alkaline Phosphatase 53 Total Protein 7.1 Albumin 3.8 07/12/18 21:43 RBC 4.79 MCV 82.4 MCHC 34.7 RDW 14.1 MPV 8.1 Neutrophils % 52.0 Lymphocytes % 38.1 D Monocytes % 6.6 Eosinophils % 2.2 Basophils % 1.1 - RADIOLOGY Radiology Studies Ordered: Category Date Time Status SOFT TISSUE ABDOMEN US [US] Stat Ultrasound 07/12/18 21:20 Taken <Mer Hoffman - Last Filed: 07/12/18 23:21> Medical Decision Making - Medical Decision Making 07/12/18 20:32 27 yr old woman with nonhealing laproscopic incision since surgery on 07/02/2018. check basic labs for signs of infection/abnormality and abdominal wall uss to eval for subq collection 07/12/18 22:33 CBC without anemia or leucocytosis, CMP without electrolyte abnormalities. pending ultrasound 07/12/18 23:13 ultrasound with small collection, dr. Lamar notified, will see pt in his office on Friday. <Leslie Drake - Last Filed: 07/12/18 23:14> *DC/Admit/Observation/Transfer - Discharge Dispostion Decision to Admit order: No - Post Discharge Activity Activity Comments: Please follow-up with Dr. Lamar in his office on Friday, he is aware you will be coming in. Keep the wound clean and dry at all times. If you develop abdominal pain, chest pain, fevers, worsening discharge from your wound, redness or changes around the wound please return to the hospital. <Leslie Drake - Last Filed: 07/12/18 23:14> <Mer Hoffman - Last Filed: 07/12/18 23:21> Diagnosis at time of Disposition: Wound drainage, Post-operative state - Discharge Dispostion Disposition: HOME - Referrals Referrals: Sy Neri MD [Primary Care Provider] - Angel Lamar MD [Staff Physician] - - Patient Instructions Printed Discharge Instructions: DI for Wound Infection Print Language: HEBREW - Post Discharge Activity Forms/Work/School Notes: Back to Work
[2018-07-12 21:54] LABS: BASO % 1.1 % (0-2.0); EOS % 2.2 % (0-4.5); HEMATOCRIT 39.5 % (32.4-45.2); HEMOGLOBIN 13.7 GM/dL (10.7-15.3); LYMPH % 38.1 % (8-40); MCH 28.6 pg (25.7-33.7); MCHC 34.7 g/dl (32.0-36.0); MEAN CELL VOLUME 82.4 fl (80-96); MEAN PLT VOLUME 8.1 fl (7.5-11.1); MONO % 6.6 % (3.8-10.2); PLATELET COUNT 342 K/MM3 (134-434); RBC 4.79 M/mm3 (3.60-5.2); RDW 14.1 % (11.6-15.6); WHITE BLOOD COUNT 8.3 K/mm3 (4.0-10.0)
[2018-07-12 22:09] LABS: INR 1.08 (0.83-1.09); PROTHROMBIN TIME (PATIENT) 12.8 SEC (9.7-13.0)
[2018-07-12 22:30] LABS: ALBUMIN 3.8 g/dl (3.4-5.0); ALK PHOS 53 U/L (45-117); ANION GAP 6 MMOL/L (8-16); BILIRUBIN,TOTAL 0.1 mg/dL (0.2-1); BLOOD UREA NITROGEN 12 mg/dL (7-18); CALCIUM 9.4 mg/dL (8.5-10.1); CHLORIDE 103 mmol/L (98-107); CO2 30 mmol/L (21-32); CREATININE 0.7 mg/dL (0.55-1.3); GLUCOSE,RANDOM 82 mg/dL (74-106); POTASSIUM 4.7 mmol/L (3.5-5.1); SGOT/AST 16 U/L (15-37); SGPT/ALT 32 U/L (13-61); SODIUM 139 mmol/L (136-145); TOT PROT 7.1 g/dl (6.4-8.2)
== END 2018-07-12 23:35 | disposition home or self-care (01) ==
LOC: JER 18:54
DX: T81.30XA Disruption of wound, unspecified, initial encounter (principal)
CPT/HCPCS: 36415; 76705; 80053; 85025; 85610; 99283-25

== ENCOUNTER 2018-12-02 08:35 | Emergency (ER) | payer OTHER ==
[2018-12-02 08:43] VITALS: TEMP 98.2; BMI 25.0
[2018-12-02 09:22] LABS: BASO % 0.9 % (0-2.0); EOS % 1.6 % (0-4.5); HEMATOCRIT 40.6 % (32.4-45.2); HEMOGLOBIN 13.6 GM/dL (10.7-15.3); MCH 27.6 pg (25.7-33.7); MCHC 33.5 g/dl (32.0-36.0); MEAN CELL VOLUME 82.3 fl (80-96); MEAN PLT VOLUME 8.6 fl (7.5-11.1); MONO % 7.2 % (3.8-10.2); NEUT % 52.3 % (42.8-82.8); PLATELET COUNT 273 K/MM3 (134-434); RBC 4.93 M/mm3 (3.60-5.2); RDW 13.2 % (11.6-15.6); WHITE BLOOD COUNT 5.4 K/mm3 (4.0-10.0)
[2018-12-02] MEDS ORDERED: ACETAMINOPHEN 1000 MG/100 ML VIAL (NON FORMULARY) IVPB ONE (09:33)
[2018-12-02] MEDS ORDERED: SODIUM CHLORIDE 1,000 ML IV STA (09:33)
[2018-12-02 09:50] LABS: PH,URINE 5.5 (5.0-8.0); URINE APPEARANCE CLEAR; URINE BILIRUBIN NEGATIVE (NEGATIVE); URINE COLOR YELLOW; URINE GLUCOSE (UA) NEGATIVE (NEGATIVE); URINE KETONE NEGATIVE (NEGATIVE); URINE LEUK ESTERASE NEGATIVE (NEGATIVE); URINE NITRITE NEGATIVE (NEGATIVE); URINE PROTEIN NEGATIVE (NEGATIVE); URINE UROBILINOGEN 0.2 mg/dL (0.2-1.0)
[2018-12-02 09:51] LABS: ALBUMIN 3.7 g/dl (3.4-5.0); ALK PHOS 48 U/L (45-117); ANION GAP 6 MMOL/L (8-16); BILIRUBIN,TOTAL 0.3 mg/dL (0.2-1); BLOOD UREA NITROGEN 13.3 mg/dL (7-18); CALCIUM 8.6 mg/dL (8.5-10.1); CHLORIDE 110 mmol/L (98-107); CO2 26 mmol/L (21-32); CREATININE 0.8 mg/dL (0.55-1.3); GLUCOSE,RANDOM 99 mg/dL (74-106); POTASSIUM 3.8 mmol/L (3.5-5.1); SGOT/AST 19 U/L (15-37); SGPT/ALT 27 U/L (13-61); SODIUM 142 mmol/L (136-145); TOT PROT 6.8 g/dl (6.4-8.2)
--- NOTE | 2018-12-02 10:31 | PDOC ---
Documentation entered by Keanu Goff SCRIBE, acting as scribe for Angel Dominguez MD. Angel Dominguez MD: This documentation has been prepared by the Shell celestin Elijah, SCRIBE, under my direction and personally reviewed by me in its entirety. I confirm that the documentation accurately reflects all work, treatment, procedures, and medical decision making performed by me. History of Present Illness - General Chief Complaint: Vaginal Bleeding Stated Complaint: 6 WK PREG / VAG BLEED Time Seen by Provider: 12/02/18 09:13 - History of Present Illness Initial Comments: 12/02/18 10:21 28 F , @ 6 weeks by LMP, presenting to ED with vaginal bleeding and cramps. Pt states that she had a positive UPT about 1 week ago. however, since then, she has had persistent vaginal bleeding. She notes passage of a clot a few days ago and spotting since then. Denies any significant abdominal pain. Endorses suprapubic cramping radiating to her lower back. No F/C. No lightheadedness/ dizziness. Past History - Past Medical History Allergies/Adverse Reactions: Allergies Allergy/AdvReac Type Severity Reaction Status Date / Time No Known Allergies Allergy Verified 12/02/18 08:41 Anemia: No Asthma: No Cancer: No Cardiac Disorders: No CVA: No COPD: No CHF: No DVT: No Dementia: No Diabetes: No Dialysis: No GI Disorders: No Disorders: No HTN: No Hypercholesterolemia: No Kidney Stones: No Liver Disease: No Psychiatric Problems: No Seizures: No Thyroid Disease: No - Surgical History Appendectomy: Yes (07/02/18) - Reproductive History (#): 3 Para: 0 Therapeutic (s) & number: Yes (2) Spontaneous : 2 - Immunization History Immunization Up to Date: Yes - Suicide/Smoking/Psychosocial Hx Smoking Status: Yes Smoking History: Never smoked Have you smoked in the past 12 months: No Number of Cigarettes Smoked Daily: 0 Hx Alcohol Use: No Drug/Substance Use Hx: No Substance Use Type: None Review of Systems - Review of Systems Comments:: 12/02/18 10:22 "GENERAL/CONSTITUTIONAL: No fever or chills. No weakness. HEAD, EYES, EARS, NOSE AND THROAT: No change in vision. No ear pain or discharge. No sore throat. CARDIOVASCULAR: No chest pain, no shortness of breath, no loss of consciousness RESPIRATORY: No cough, wheezing, or hemoptysis. GASTROINTESTINAL: + suprapubic cramps, No nausea, vomiting, diarrhea or constipation. GENITOURINARY: + vaginal bleeding, No dysuria, frequency, or change in urination. MUSCULOSKELETAL: No joint or muscle swelling or pain. No neck or back pain. SKIN: No rash NEUROLOGIC: No vertigo, no change in strength/sensation. ENDOCRINE: No increased thirst. No abnormal weight change. HEMATOLOGIC/LYMPHATIC: No anemia, easy bleeding, or history of blood clots. ALLERGIC/IMMUNOLOGIC: No hives or skin allergy. *Physical Exam - Vital Signs Last Vital Signs Temp Pulse Resp BP Pulse Ox 98.2 F 101 H 18 135/81 99 12/02/18 08:41 12/02/18 08:41 12/02/18 08:41 12/02/18 08:41 12/02/18 08:41 - Physical Exam Comments: 12/02/18 10:25 "GENERAL: Awake, alert, and fully oriented, in no acute distress. HEAD: No signs of trauma EYES: PERRLA, EOMI, sclera anicteric, conjunctiva clear ENT: Auricles normal inspection, hearing grossly normal, nares patent, oropharynx clear without exudates. Moist mucosa NECK: Nontender, no stepoffs, Normal ROM, supple, no lymphadenopathy, JVD, or masses LUNGS: Breath sounds equal, clear to auscultation bilaterally. No wheezes, and no crackles HEART: Regular rate and rhythm, normal S1 and S2, no murmurs, rubs or gallops ABDOMEN: Soft, nontender, normoactive bowel sounds. No guarding, no rebound. No masses EXTREMITIES: Normal range of motion, no edema. No clubbing or cyanosis. No cords, erythema, or tenderness NEUROLOGICAL: Cranial nerves II through XII intact. 5/5 strength and sensation in all extremities, Normal speech, normal gait, normal cerebellar function SKIN: Warm, Dry, normal turgor, no rashes or lesions noted. : os closed, scant blood in vault, no CMT, no adnexal tenderness or masses ED Treatment Course - LABORATORY CBC & Chemistry Diagram: 12/02/18 09:11 12/02/18 09:11 - ADDITIONAL ORDERS Additional order review: Laboratory Results 12/02/18 12/02/18 12/02/18 09:20 09:11 09:11 Sodium 142 Potassium 3.8 Chloride 110 H Carbon Dioxide 26 Anion Gap 6 L BUN 13.3 Creatinine 0.8 Est GFR (CKD-EPI)AfAm 114.66 Est GFR (CKD-EPI)NonAf 98.93 Random Glucose 99 Calcium 8.6 Total Bilirubin 0.3 AST 19 ALT 27 Alkaline Phosphatase 48 Total Protein 6.8 Albumin 3.7 Beta HCG, Quant < 1.0 Urine Color Yellow Urine Appearance Clear Urine pH 5.5 D Ur Specific [place] 1.010 Urine Protein Negative Urine Glucose (UA) Negative Urine Ketones Negative Urine Blood Negative Urine Nitrite Negative Urine Bilirubin Negative Urine Urobilinogen 0.2 Ur Leukocyte Esterase Negative Blood Type A POSITIVE Antibody Screen Negative 12/02/18 09:11 RBC 4.93 MCV 82.3 MCHC 33.5 RDW 13.2 MPV 8.6 Neutrophils % 52.3 Lymphocytes % 38.0 Monocytes % 7.2 Eosinophils % 1.6 Basophils % 0.9 Medical Decision Making - Medical Decision Making 12/02/18 10:25 28 F, 6 weeks by LMP, presenting to ED with cramps and vaginal bleeding. Will r/o ectopic. - labs, HCG, T&S - UA, UCx - TVUS 12/02/18 10:26 Pt with HCG of 0 TVUS normal, no IUP Suspect pt had spontaneous miscarriage a week ago. Now HCG is undetectable. I spoke with pt and informed her of results. Counseled her on her likely miscarriage. 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 Repeat HR 86. Pt is well appearing, with normal vitals. Clinically stable for DC at this time. I discussed the physical exam findings, ancillary test results and final diagnoses with the patient. I answered all of the patient's questions. The patient was satisfied with the care received and felt comfortable with the discharge plan and treatment plan. The patient agrees to follow up with the primary care physician within 24-72 hours. *DC/Admit/Observation/Transfer Diagnosis at time of Disposition: Vaginal bleeding - Discharge Dispostion Disposition: HOME - Referrals Referrals: Sy Neri MD [Primary Care Provider] - - Patient Instructions Printed Discharge Instructions: DI for Miscarriage, Dealing With Miscarriage Additional Instructions: Your ultrasound and bloodwork today showed that you are not . It is possible that you had a miscarriage. Please follow up with your junior network administrator within 1 week for evaluation. If you experience worsening bleeding, pain, fevers, or any other worrisome symptoms, return to the ER immediately. De Leon sonograma y anlisis de mookie de hoy mostraron que no est embarazada. Es posible que haya tenido un aborto involuntario. Por favor esperanza un seguimiento con de leon obstetra / gineclogo dentro de rosa semana para la evaluacin. Si experimenta empeoramiento del sangrado, dolor, fiebre o cualquier otro sntoma preocupante, regrese a la janette de emergencias inmediatamente. Print Language: CZECH - Post Discharge Activity - Attestations Physician Attestion: 12/02/18 10:30 I, Dr. Angel Dominguez MD, attest that this document has been prepared under my direction and personally reviewed by me in its entirety. I further attest, that it accurately reflects all work, treatment, procedures and medical decision -making performed by me.
[2018-12-02 13:21] VITALS: BP 126/79; PULSE 97
== END 2018-12-02 13:15 | disposition home or self-care (01) ==
LOC: JER 08:35
DX: Z3A.01 Less than 8 weeks gestation of pregnancy (principal); N93.9 Abnormal uterine and vaginal bleeding, unspecified
CPT/HCPCS: 36415; 76817-TC; 80053; 81003; 84702; 85025; 86850; 86900; 86901; 87086; 99282-25

== ENCOUNTER 2020-06-26 13:48 | Emergency (ER) | payer OTHER ==
[2020-06-26 13:57] VITALS: TEMP 98.1; BMI 25.6
[2020-06-26] MEDS ORDERED: ONDANSETRON *ODT* 4 MG TABLET SL ONE (14:52)
[2020-06-26 14:58] LABS: BASO % 0.7 % (0-2.0); EOS % 0.8 % (0-4.5); HEMATOCRIT 39.9 % (32.4-45.2); HEMOGLOBIN 13.4 GM/dL (10.7-15.3); LYMPH % 22.4 % (8-40); MCH 28.1 pg (25.7-33.7); MCHC 33.5 g/dl (32.0-36.0); MEAN CELL VOLUME 83.8 fl (80-96); MEAN PLT VOLUME 9.1 fl (7.5-11.1); MONO % 5.7 % (3.8-10.2); NEUT % 70.4 % (42.8-82.8); PLATELET COUNT 301 K/MM3 (134-434); RBC 4.76 M/mm3 (3.60-5.2); WHITE BLOOD COUNT 10.4 K/mm3 (4.0-10.0)
[2020-06-26] MEDS ORDERED: ONDANSETRON *ODT* 4 MG TABLET ONE (15:04)
[2020-06-26 15:06] LABS: EPI CELLS 3 /uL (0-25.1); HYALINE CASTS 0 /uL (0-3.1); PH,URINE 6.5 (5.0-8.0); URINE APPEARANCE CLEAR; URINE BACTERIA 2585 /uL (0-1359); URINE BILIRUBIN NEGATIVE (NEGATIVE); URINE COLOR YELLOW; URINE GLUCOSE (UA) NEGATIVE (NEGATIVE); URINE KETONE NEGATIVE (NEGATIVE); URINE LEUK ESTERASE NEGATIVE (NEGATIVE); URINE NITRITE NEGATIVE (NEGATIVE); URINE PROTEIN NEGATIVE (NEGATIVE); URINE RBC 6 /uL (0-23.9); URINE UROBILINOGEN 0.2 mg/dL (0.2-1.0)
[2020-06-26 16:08] VITALS: BP 132/61; PULSE 87
[2020-06-26 17:25] LABS: URINE WBC 278.4 /uL (0-25.8)
== END 2020-06-26 16:08 | disposition home or self-care (01) ==
LOC: JER 13:48
DX: O23.41 Unspecified infection of urinary tract in pregnancy, first trimester (principal); O20.0 Threatened abortion; Z3A.08 8 weeks gestation of pregnancy
CPT/HCPCS: 36415; 76817-TC; 81003; 84702; 85025; 86850; 86900; 86901; 87086; 99284-25; Q0162

== ENCOUNTER 2021-04-10 16:46 | Emergency (ER) | payer OTHER ==
[2021-04-10 17:10] VITALS: BMI 28.3
[2021-04-10 18:33] VITALS: TEMP 98.3
[2021-04-10 19:05] LABS: EPI CELLS 9 /uL (0-25.1); HYALINE CASTS 0 /uL (0-3.1); PH,URINE 7.5 (5.0-8.0); URINE APPEARANCE CLEAR; URINE BACTERIA 266 /uL (0-1359); URINE BILIRUBIN NEGATIVE (NEGATIVE); URINE COLOR YELLOW; URINE GLUCOSE (UA) NEGATIVE (NEGATIVE); URINE KETONE NEGATIVE (NEGATIVE); URINE LEUK ESTERASE 1+ (NEGATIVE); URINE NITRITE NEGATIVE (NEGATIVE); URINE PROTEIN NEGATIVE (NEGATIVE); URINE RBC 2 /uL (0-23.9); URINE UROBILINOGEN 0.2 mg/dL (0.2-1.0); URINE WBC 19 /uL (0-25.8)
[2021-04-10 23:06] VITALS: BP 128/76; PULSE 85
== END 2021-04-10 22:55 | disposition home or self-care (01) ==
LOC: JER 16:46
DX: O26.892 Other specified pregnancy related conditions, second trimester (principal); Z3A.20 20 weeks gestation of pregnancy
CPT/HCPCS: 76856-TC; 81003; 87086; 99281-25

== ENCOUNTER 2021-08-13 06:40 | Inpatient (IN) | payer OTHER ==
[2021-08-13] MEDS ORDERED: ELECTROLYTE-148 SOLN 500 ML IV ONE (07:00)
[2021-08-13] MEDS ORDERED: CITRIC ACID/SODIUM CITRATE 30 ML UNIT-DOSE CUP PO ONE (07:00)
[2021-08-13] MEDS ORDERED: ELECTROLYTE-148 SOLN 1,000 ML IV SCH ×2 (07:30→09:00)
[2021-08-13] MEDS ORDERED: morphine SULFATE/PF 1 MG/2 ML (2cc Syringe - QUVA) ONE (07:46)
[2021-08-13 07:56] VITALS: BMI 34.9
[2021-08-13] MEDS ORDERED: SUCCINYLCHOLINE CHLORIDE 200 MG/10 ML SYRINGE ONE (08:53)
[2021-08-13] MEDS ORDERED: BENZOCAINE 20% 57 GM BOTTLE TP PRN (08:54)
[2021-08-13] MEDS ORDERED: BENZOCAINE 28 GM HEMORRHOIDAL OINTMENT TP PRN (08:54)
[2021-08-13] MEDS ORDERED: METHYLERGONOVINE MALEATE 0.2 MG/1 ML AMP IM PRN (08:54)
[2021-08-13] MEDS ORDERED: WITCH HAZEL 50% (TUCKS) 40 PAD/JAR PAD TP PRN (08:54)
[2021-08-13] MEDS ORDERED: PROPOFOL 20 ML ONE (08:55)
[2021-08-13] MEDS ORDERED: ONDANSETRON 4 MG/2 ML VIAL ONE (09:15)
[2021-08-13] MEDS ORDERED: ceFAZolin SODIUM 1 GM VIAL ONE (09:15)
[2021-08-13] MEDS ORDERED: OXYTOCIN 10 UNITS/ML VIAL ONE (09:34)
[2021-08-13 10:25] LABS: CORD BASE EXCESS -3.6 mmol/L (0-2); CORD HCO3 23.8 mmHg (20-29); CORD PCO2 51.6 mmHg (30-78); CORD pH 7.281 (7.14-7.44)
[2021-08-13 10:28] LABS: CORD BASE EXCESS -5.6 mmol/L (0-2); CORD HCO3 23.6 mmHg (20-29); CORD PCO2 61.4 mmHg (30-78); CORD pH 7.203 (7.14-7.44)
[2021-08-13] MEDS ORDERED: OXYTOCIN 20 UNITS in 0.9% NS 20 UNIT/1,000 ML INFUS.BAG IV ONE (11:35)
[2021-08-13] MEDS: OXYTOCIN 20 UNITS in 0.9% NS 20 UNIT/1,000 ML INFUS.BAG IV SCH ×2 (11:40→21:42)
[2021-08-13] MEDS: PRENATAL VITAMINS W/ FOLIC ACID TABLET (FP) PO SCH (11:43)
[2021-08-13] MEDS: FERROUS SO4 325 MG TABLET (FP) PO SCH ×2 (11:43→17:51)
[2021-08-13] MEDS: IBUPROFEN 800 MG/8 ML IJ IVPB PRN ×2 (14:17→21:42)
[2021-08-14] MEDS: ACETAMINOPHEN 325 MG TABLET (FP) PO PRN (03:21)
[2021-08-14] MEDS: SIMETHICONE 80 MG TAB.CHEW (FP) PO PRN ×3 (03:21→20:22)
[2021-08-14] MEDS: IBUPROFEN 800 MG/8 ML IJ IVPB PRN (05:18)
[2021-08-14] MEDS: FERROUS SO4 325 MG TABLET (FP) PO SCH ×2 (08:07→16:45)
[2021-08-14] MEDS: PRENATAL VITAMINS W/ FOLIC ACID TABLET (FP) PO SCH (09:12)
[2021-08-14 09:26] LABS: BASO % 0.5 % (0-2.0); EOS % 0.4 % (0-4.5); HEMATOCRIT 38.6 % (32.4-45.2); HEMOGLOBIN 13.2 GM/dL (10.7-15.3); LYMPH % 13.4 % (8-40); MCH 29.2 pg (25.7-33.7); MCHC 34.3 g/dl (32.0-36.0); MEAN CELL VOLUME 85.2 fl (80-96); MEAN PLT VOLUME 9.3 fl (7.5-11.1); MONO % 8.2 % (3.8-10.2); NEUT % 77.5 % (42.8-82.8); PLATELET COUNT 163 10^3/uL (134-434); RBC 4.54 M/mm3 (3.60-5.2); RDW 14.3 % (11.6-15.6); WHITE BLOOD COUNT 9.4 K/mm3 (4.0-10.0)
[2021-08-14] MEDS: oxyCODONE HCL 5 MG TABLET PO PRN ×2 (11:10→15:02)
[2021-08-14] MEDS: IBUPROFEN 600 MG TABLET (FP) PO PRN ×2 (16:44→20:22)
[2021-08-14] MEDS: BISACODYL 10 MG SUPP.RECT RC PRN (16:45)
[2021-08-14] MEDS: OXYTOCIN 20 UNITS in 0.9% NS 20 UNIT/1,000 ML INFUS.BAG IV SCH (20:18)
[2021-08-14] MEDS: SENNOSIDES/DOCUSATE COMBO (SENNA PLUS) TABLET (UD) PO PRN (20:22)
[2021-08-15] MEDS: SIMETHICONE 80 MG TAB.CHEW (FP) PO PRN ×4 (01:44→22:05)
[2021-08-15] MEDS: IBUPROFEN 600 MG TABLET (FP) PO PRN ×4 (01:44→17:19)
[2021-08-15] MEDS: oxyCODONE HCL 5 MG TABLET PO PRN (02:10)
[2021-08-15] MEDS: BISACODYL 10 MG SUPP.RECT RC PRN (06:10)
[2021-08-15] MEDS: ACETAMINOPHEN 325 MG TABLET (FP) PO PRN (07:49)
[2021-08-15] MEDS: FERROUS SO4 325 MG TABLET (FP) PO SCH ×2 (07:49→17:19)
[2021-08-15] MEDS: PRENATAL VITAMINS W/ FOLIC ACID TABLET (FP) PO SCH (09:29)
[2021-08-15] MEDS: SENNOSIDES/DOCUSATE COMBO (SENNA PLUS) TABLET (UD) PO PRN (22:05)
[2021-08-16] MEDS: oxyCODONE HCL 5 MG TABLET PO PRN ×2 (00:48→04:15)
[2021-08-16 07:22] LABS: BASO % 0.4 % (0-2.0); EOS % 2.4 % (0-4.5); HEMATOCRIT 35.8 % (32.4-45.2); HEMOGLOBIN 12.4 GM/dL (10.7-15.3); LYMPH % 23.2 % (8-40); MCH 29.7 pg (25.7-33.7); MCHC 34.7 g/dl (32.0-36.0); MEAN CELL VOLUME 85.4 fl (80-96); MEAN PLT VOLUME 8.9 fl (7.5-11.1); MONO % 7.6 % (3.8-10.2); NEUT % 66.4 % (42.8-82.8); PLATELET COUNT 171 10^3/uL (134-434); RBC 4.19 M/mm3 (3.60-5.2); RDW 14.3 % (11.6-15.6); WHITE BLOOD COUNT 7.6 K/mm3 (4.0-10.0)
[2021-08-16] MEDS: FERROUS SO4 325 MG TABLET (FP) PO SCH (08:00)
[2021-08-16] MEDS: IBUPROFEN 600 MG TABLET (FP) PO PRN (08:00)
[2021-08-16] MEDS: SIMETHICONE 80 MG TAB.CHEW (FP) PO PRN (08:00)
[2021-08-16 09:05] VITALS: BP 113/74; PULSE 86; TEMP 97.8
[2021-08-16] MEDS: PRENATAL VITAMINS W/ FOLIC ACID TABLET (FP) PO SCH (09:14)
== END 2021-08-16 14:10 | disposition home or self-care (01) | DRG 540 ==
LOC: JLDR 06:40 → J3W 12:15
PROVIDERS: ADMIT Obstetrics & Gynecology; ATTEND Obstetrics & Gynecology
PROC: 10D00Z1 Extraction of Products of Conception, Low, Open Approach (ICD-10-PCS; principal; 2021-08-13)
DX: O34.219 Maternal care for unspecified type scar from previous cesarean delivery (principal); O10.92 Unspecified pre-existing hypertension complicating childbirth; Z3A.38 38 weeks gestation of pregnancy; Z37.0 Single live birth
CPT/HCPCS: 36415; 36600; 82803; 85025; 88307-TC